=== PATIENT | male | born 1980 | race Two or more races ===

== ENCOUNTER 2024-07-17 17:17 | Inpatient (IN) | payer OTHER ==
[~2024-07-17] VITALS: Ht 165.1 cm; Wt 76.0 kg
[~2024-07-17 17:17] MED LIST: ASPI81CH59 PO; CARV3.1240 PO; FURO40TA4 PO; HYDR-3682 PO; ISOS20TA5 PO; LOSA-534 PO
--- NOTE | 2024-07-17 17:31 | ECG ---
[facility] Test Date: 2024-07-17 Test Time: 17:29:07 Pat Name: LYDIA CARMONA Department: er Room: [address] [place] [address] Gender: M Java Programmer Analyst: gp : 1980 Requested By: RALPH DONALDSON Order Number: [id number] Reading MD: Darell Hodgson Measurements Intervals [place] Rate: 111 P: 66 RI: 163 QRS: 97 QRSD: 108 T: -33 QT: 355 QTc: 483 Interpretive Statements Sinus tachycardia Borderline right axis deviation Nonspecific repol abnrm, inferolateral lds Electronically Signed On 07-18-2024 18:26:50 PST by Darell Hodgson Please click the below link to view image of tracing.
--- NOTE | 2024-07-17 18:29 | ED.PDOC ---
SOB-HPI HPI Comments 44 y.o male with PMHx of CHF, presents to the ED via EMS for a chief complaint of SOB associated with substernal chest pressure radiating to his back, nausea and vomiting that started earlier today. Patient reports similar episodes in the past but has not gotten any treatment for it as it goes away on its own. Patient rates pain a 8/10, states it is constant and has no modifying factors. Patient denies any fever, chills, abdominal pain. Chief Complaint: Shortness of Breath Time Seen by MD: 18:18 Primary Care Provider: SHAISTA Demarco notes: Nurses Notes, Boat Mechanic Notes, Medications, Allergies Information Source: Patient Mode of Arrival: EMS Severity: Moderate Timing: Hours Duration: Since onset Context: At Rest PE Risk Factors: None History of: CHF Modifying Factors: Nothing Associated Signs and Symptoms: Chest Pain Quality: Pressure Radiation: Back Location: Substernal Past Medical History PAST MEDICAL HISTORY: CHF Surgical History: Denies all surgeries Family History Family History: Family hx of Cancer Social History Smoker: Non-Smoker Alcohol: Denies ETOH Use Drugs: Denies Drug Use Lives In: Home Constitutional: denies: chills, diaphoresis, fatigue, fever, malaise, sweats, weakness, others EENTM: denies: blurred vision, double vision, ear bleeding, ear discharge, ear drainage, ear pain, ear ringing, eye pain, eye redness, hearing loss, mouth pain, mouth swelling, nasal discharge, nose bleeding, nose congestion, nose pain, photophobia, tearing, throat pain, throat swelling, voice changes, others Respiratory: reports: SOB at rest, shortness of breath, SOB with excertion; denies: cough, hemoptysis, orthopnea, stridor, wheezing, others Cardiovascular: reports: chest pain; denies: dizzy spells, diaphoresis, Dyspnea on exertion, edema, irregular heart beat, left arm pain, lightheadedness, palpitations, PND, syncope, others Gastrointestinal: reports: nausea, vomiting; denies: abdomen distended, abdominal pain, blood streaked bowels, constipated, diarrhea, dysphagia, difficulty swallowing, hematemesis, melena, poor appetite, poor fluid intake, rectal bleeding, rectal pain, others Genitourinary: denies: burning, dysuria, flank pain, frequency, hematuria, incontinence, penile discharge, penile sore, pain, testicle pain, testicle swelling, urgency, others Neurological: denies: dizziness, fainting, headache, left sided numbness, left sided weakness, numbness, paresthesia, pre-existing deficit, right sided numbness, right sided weakness, seizure, speech problems, tingling, tremors, weakness, others Musculoskeletal: reports: back pain; denies: gout, joint pain, joint swelling, muscle pain, muscle stiffness, neck pain, others Integumetry: denies: bruises, change in color, change in hair/nails, dryness, laceration, lesions, lumps, rash, wounds, others Allergic/Immunocompromised: denies: Difficulty Healing, Frequent Infections, Hives, Itching, others Hematologic/Lymphatic: denies: anemia, blood clots, easy bleeding, easy bruising, swollen glands, others Endocrine: denies: excessive hunger, excessive sweating, excessive thirst, excessive urination, flushing, intolerance to cold, intolerance to heat, unexplained weight gain, unexplained weight loss, others Psychiatric: denies: anxiety, bipolar disorder, depression, hopeless, panic disorder, schizophrenia, sleepless, suicidal, others All Other Systems: Reviewed and Negative Physical Exam General Appearance: Moderate Distress HEENT: Normal ENT Inspection, Pharynx Normal, TMs Normal Neck: Full Range of Motion, Non-Tender, Normal, Normal Inspection Respiratory: Chest Non-Tender, Decreased Breath Sounds, No Accessory Muscle Use, Rales, Respiratory Distress Cardiovascular: No Edema, No JVD, No Murmur, No Gallop, Normal Peripheral Pulses, Regular Rate/Rhythm Breast Exam: Deferred Gastrointestinal: No Organomegaly, Non Tender, No Pulsatile Mass, Normal Bowel Sounds, Soft Genitalia: Deferred Pelvic: Deferred Rectal: Deferred Extremities: No calf tenderness, Normal capillary refill, No pedal edema Musculoskeletal : Apperance: Normal Neurologic: Alert, 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 Was a procedure done?: No Differential Dx Differential Diagnosis: Bronchitis, CHF, Panic Attack, Pneumonia, Pulmonary Embolism, Respiratory Distress, URI X-Ray, Labs, Meds, VS Vital Signs Date Time Temp Pulse Resp B/P (MAP) Pulse Ox O2 Delivery O2 Flow Rate FiO2 07/17/24 19:06 111 07/17/24 17:29 111 07/17/24 17:23 98.0 96 18 154/78 (103) 99 Lab Test 07/17/24 20:27 07/17/24 19:12 Range/Units Troponin I High Sensitivity 70 *H 76 *H </=54 ng/L White Blood Count 6.4 4.4-10.8 10^3/uL Red Blood Count 4.61 4.5-5.90 10^6/uL Hemoglobin 12.3 L 13.5-17.5 g/dL Hematocrit 38.4 L 41.0-53.0 % Mean Corpuscular Volume 83.2 80.0-100.0 fL Mean Corpuscular Hemoglobin 26.7 L 28.0-32.0 pg Mean Corpuscular Hemoglobin Concent 32.1 32.0-36.0 g/dL Red Cell Distribution Width 18.1 H 11.8-14.3 % Platelet Count 355 140-450 10^3/uL Mean Platelet Volume 7.9 6.9-10.8 fL Neutrophils (%) (Auto) 63.4 37.0-80.0 % Lymphocytes (%) (Auto) 18.5 10.0-50.0 % Monocytes (%) (Auto) 16.4 H 0.0-12.0 % Eosinophils (%) (Auto) 0.9 0.0-7.0 % Basophils (%) (Auto) 0.8 0.0-2.0 % Neutrophils # (Auto) 4.1 1.6-8.6 10 ^3/uL Lymphocytes # (Auto) 1.2 0.4-5.4 10 ^3/uL Monocytes # (Auto) 1.1 0-1.3 10 ^3/uL Eosinophils # (Auto) 0.1 0-0.8 10 ^3/uL Basophils # (Auto) 0 0-0.2 10 ^3/uL Nucleated Red Blood Cells 0.3 % Sodium Level 130 L 136-145 mmol/L Potassium Level 4.7 3.5-5.1 mmol/L Chloride Level 98 98-107 mmol/L Carbon Dioxide Level 19 L 20-31 mmol/L Anion Gap 13 5-15 Blood Urea Nitrogen 57 H 9-23 mg/dL Creatinine 2.02 H 0.700-1.30 mg/dL Glomerular Filtration Rate Calc 41 >90 mL/min BUN/Creatinine Ratio 28.2 H 10.0-20.0 Serum Glucose 122 H 74-106 mg/dL Calcium Level 9.2 8.7-10.4 mg/dL B-Type Natriuretic Peptide > 5000.00 0-100 pg/mL The chest x-ray shows: IMPRESSION: 1. Right lower lobe opacity may reflect atelectasis or mild pneumonia. 2. Small right pleural effusion. 3. Cardiomegaly The BNP is greater than 5000 The CBC is within normal limits. The chemistry panel shows a BUN of 57 and a creatinine of 2.02 The CO2 level is 19 and they anion gap is within normal range The troponin level is elevated x2 The patient was being admitted to the hospitalist at this time. A cardiology consult will be obtained. The patient was given Lasix 40 mg IV push We discussed the findings with the patient and he is in agreement with the management Images Reviewed?: Images reviewed and evaluated by me Time of 1ST Reevaluation: 18:26 Reevaluation 1ST: Unchanged Patient Education/Counseling: Diagnosis, Treatment, Prognosis Family Education/Counseling: No Family Present Departure 1 Departure Time of Disposition: 21:21 Impression: Primary Impression: Acute on chronic diastolic heart failure Additional Impressions: Elevated brain natriuretic peptide (BNP) level Elevated troponin Disposition: ADMITTED INPATIENT Admit to: [facility] Condition: Fair Critical Care Note Critical Care Time?: Yes (45 min-critical care time only) Stability Stability form required: Yes Unstable for transfer: Telemetry monitoring (Telemetry monitoring required), ED Physician Assesment (Clinical assesment) Heart Score Heart Score: Heart Score Response (Comments) Value History Moderate Suspicious 1 EKG Repolarization Disturb 1 Age <45 0 Risk Factors >3 or Hx ASHD 2 Troponin 1-2 x's Normal limit 1 Total 5 I personally scribed for RALPH DONALDSON MD ([email or web address]) on 07/17/24 at 18:29. Electronically submitted by Inga Hernandez ([employer]). I personally scribed for RALPH DONALDSON MD ([email or web address]) on 07/17/24 at 19:06. Electronically submitted by Inga Hernandez ([facility]). RALPH DONALDSON MD Jul 17, 2024 18:29
--- NOTE | 2024-07-17 19:03 | DVH ---
CHEST RADIOGRAPH Indication: sob Technique: Frontal and lateral view of the chest was obtained Comparison: None FINDINGS: Lines and Tubes: None Lungs: Right lower lobe opacity may reflect atelectasis or mild pneumonia. Pleura: Small right pleural effusion. No pneumothorax. Cardiomediastinal contours: Cardiomegaly. Bones: Unremarkable IMPRESSION: 1. Right lower lobe opacity may reflect atelectasis or mild pneumonia. 2. Small right pleural effusion. 3. Cardiomegaly
[2024-07-17 19:42] LABS: Basophils # (auto) 0 10 ^3/uL (0-0.2); Basophils % (auto) 0.8 % (0.0-2.0); Eosinophils # (auto) 0.1 10 ^3/uL (0-0.8); Eosinophils % (auto) 0.9 % (0.0-7.0); Hematocrit 38.4 % (41.0-53.0); Hemoglobin 12.3 g/dL (13.5-17.5); Lymphocytes # (auto) 1.2 10 ^3/uL (0.4-5.4); Lymphocytes % (auto) 18.5 % (10.0-50.0); Mean Corpuscular Hemoglobin 26.7 pg (28.0-32.0); Mean Corpuscular Hgb Conc. 32.1 g/dL (32.0-36.0); Mean Corpuscular Volume 83.2 fL (80.0-100.0); Monocytes # (auto) 1.1 10 ^3/uL (0-1.3); Monocytes % (auto) 16.4 % (0.0-12.0); Neutrophils # (auto) 4.1 10 ^3/uL (1.6-8.6); Neutrophils % (auto) 63.4 % (37.0-80.0); Nucleated Red Blood Cells % 0.3 %; Platelet Count (auto) 355 10^3/uL (140-450); Red Blood Cells 4.61 10^6/uL (4.5-5.90); Red Cell Distribution Width 18.1 % (11.8-14.3); White Blood Cell 6.4 10^3/uL (4.4-10.8)
[2024-07-17 20:08] LABS: Chloride 98 mmol/L (98-107); Potassium 4.7 mmol/L (3.5-5.1)
[2024-07-17 20:09] LABS: Anion Gap 13 (5-15); Calcium 9.2 mg/dL (8.7-10.4)
[2024-07-17 20:14] LABS: BUN/Creatinine Ratio 28.2 (10.0-20.0)
[2024-07-17 20:25] LABS: Blood Urea Nitrogen 57 mg/dL (9-23); Carbon Dioxide 19 mmol/L (20-31); Glucose 122 mg/dL (74-106); Sodium 130 mmol/L (136-145)
[2024-07-17] MEDS ORDERED: NITROGLYCERIN 0.4 MG SL TAB SL PRN (22:15)
[2024-07-17] MEDS ORDERED: MORPHINE SULFATE INJ 2 MG/ml SYRG IV PRN (22:15)
--- NOTE | 2024-07-17 22:29 | DVHHPRES ---
History of Present Illness Resident Creating Document: ROSE MARY BOB History of Present Illness The patient is a 44 year-old male with a history of heart failure who presents with worsening bilateral lower extremity swelling, shortness of breath, and cough. The symptoms have progressively worsened over the past few days. The patient reports NYHA Class III-IV symptoms, including significant limitations in physical activity and discomfort with minimal exertion. The patient denies any recent changes in medication or diet. There is a chronic history of methamphetamine abuse and cigarette smoking. As per patient he follows Dr. Pierce in outpatient setting and currently taking aspirin, atorvastatin, Lasix, Coreg, Entresto. As per patient he was told to stop losartan and started Entresto. Patient denied any other symptoms including chest pain, dizziness, motor weakness, sensory deficits, abdominal pain, dysuria, fever, chills, sputum production, any other symptoms. PMH: Patient was able to provide only history of CHF, on eliquis No known indication ?AFIB PE DVT Social history: Chronic meth user, last time smoked two months ago. Chronic cigarette smoker, last smoked one week ago. Medication: Aspirin, Coreg, Entresto Allergy: None Review of Systems Review of Systems Patient complaining of worsening bilateral lower extremity swelling. Constitutional: No: Fever, Chills, Sweats, Weakness, Malaise, Other Eyes: No: Pain, Vision change, Conjunctivae inflammation, Eyelid inflammation, Other, Redness ENT: No: Ear pain, Ear discharge, Nose pain, Nose discharge, Nose congestion, Mouth pain, Mouth swelling, Throat pain, Throat swelling, Other Respiratory: No: Cough, Dry, Shortness of breath, SOB with excertion, Wheezing, Hemoptysis, Pleuritic Pain, Sputum, Wheezing, Other Cardiovascular: No: Chest Pain, Palpitations, Orthopnea, Paroxysmal Noc. Dyspnea, Edema, Lt Headedness, Other Gastrointestinal: No: Nausea, Vomiting, Abdominal Pain, Diarrhea, Constipation, Melena, Hematochezia, Other Genitourinary: No Dysuria, No Frequency, No Incontinence, No Hematuria, No Retention, No Other Musculoskeletal: leg pain; No: other, neck pain, shoulder pain, arm pain, back pain, hand pain, foot pain Skin: No: Rash, Lesions, Jaundice, Bruising, Other Neurological: No: Weakness, Numbness, Incoordination, Change in speech, Confusion, Seizures, Other Allergies: Coded Allergies: NO KNOWN ALLERGIES (Unverified , 07/17/24) Medications Current Medications Medications Dose Ordered Sig/Jacob Route Start Time Stop Time Status Last Admin Dose Admin Nitroglycerin 0.4 mg Q5MINP PRN SL 07/17/24 22:15 UNV Morphine Sulfate 2 mg Q30M PRN IV 07/17/24 22:15 UNV Furosemide 100 mg/ Sodium Chloride 110 ml @ 6.6 mls/hr [id number] IV 07/17/24 22:15 UNV Metolazone 5 mg DAILY PO 07/18/24 10:00 UNV Carvedilol 3.125 mg Q12HR PO 07/18/24 10:00 UNV Ceftriaxone Sodium 50 ml @ 100 mls/hr DAILY@09 IV 07/18/24 09:00 UNV Azithromycin 250 ml @ 125 mls/hr DAILY IV 07/18/24 10:00 UNV Aspirin 81 mg DAILY PO 07/18/24 10:00 UNV Atorvastatin Calcium 40 mg HS PO 07/18/24 22:00 UNV Exam Vital Signs Vital Signs Date Time Temp Pulse Resp B/P (MAP) Pulse Ox O2 Delivery O2 Flow Rate FiO2 07/17/24 19:06 111 07/17/24 17:23 98.0 18 154/78 (103) 99 Exam General Appearance: Cooperative. Well developed. Well nourished. NAD Head Exam: Normal inspection Neck Exam: Normal inspection. Non-tender. Normal alignment Pulmonary/Respiratory: Chest non-tender. Clear bilateral breath sounds Cardiovascular/Chest: Regular rate and rhythm. No murmurs. No JVD. Peripheral Pulses: 2+ Radial (R). 2+ Radial (L). 2+ Pedal (R). 2+ Pedal (L) Abdominal Exam: Normal bowel sounds. Soft. Nontender. No hepatospenomegaly. No masses Ankle Exam: Negative ankle edema Lower extremities: 4+ bilateral lower extremity pitting edema Neuro/Mental Status: A&O x4. Coherent Thoughts/Psych: Normal thought pattern. Appropriate mood and affect. Good judgement and insight Appearance: In no acute distress Skin Exam: Normal inspection. Normal color. Warm. Dry Labs/Xrays Labs Test 07/17/24 20:27 07/17/24 19:12 Range/Units Troponin I High Sensitivity 70 *H </=54 ng/L White Blood Count 6.4 4.4-10.8 10^3/uL Red Blood Count 4.61 4.5-5.90 10^6/uL Hemoglobin 12.3 L 13.5-17.5 g/dL Hematocrit 38.4 L 41.0-53.0 % Mean Corpuscular Volume 83.2 80.0-100.0 fL Mean Corpuscular Hemoglobin 26.7 L 28.0-32.0 pg Mean Corpuscular Hemoglobin Concent 32.1 32.0-36.0 g/dL Red Cell Distribution Width 18.1 H 11.8-14.3 % Platelet Count 355 140-450 10^3/uL Mean Platelet Volume 7.9 6.9-10.8 fL Neutrophils (%) (Auto) 63.4 37.0-80.0 % Lymphocytes (%) (Auto) 18.5 10.0-50.0 % Monocytes (%) (Auto) 16.4 H 0.0-12.0 % Eosinophils (%) (Auto) 0.9 0.0-7.0 % Basophils (%) (Auto) 0.8 0.0-2.0 % Neutrophils # (Auto) 4.1 1.6-8.6 10 ^3/uL Lymphocytes # (Auto) 1.2 0.4-5.4 10 ^3/uL Monocytes # (Auto) 1.1 0-1.3 10 ^3/uL Eosinophils # (Auto) 0.1 0-0.8 10 ^3/uL Basophils # (Auto) 0 0-0.2 10 ^3/uL Nucleated Red Blood Cells 0.3 % Sodium Level 130 L 136-145 mmol/L Potassium Level 4.7 3.5-5.1 mmol/L Chloride Level 98 98-107 mmol/L Carbon Dioxide Level 19 L 20-31 mmol/L Anion Gap 13 5-15 Blood Urea Nitrogen 57 H 9-23 mg/dL Creatinine 2.02 H 0.700-1.30 mg/dL Glomerular Filtration Rate Calc 41 >90 mL/min BUN/Creatinine Ratio 28.2 H 10.0-20.0 Serum Glucose 122 H 74-106 mg/dL Calcium Level 9.2 8.7-10.4 mg/dL B-Type Natriuretic Peptide > 5000.00 0-100 pg/mL Assessment/Plan Assessment/Plan Acute on chronic heart failure, systolic versus diastolic 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 NSTEMI type 2 likely due to CHF and pneumonia Possible pneumonia, Gram-positive versus Gram-negative. Sepsis likely due to pneumonia. 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 Elevated D-dimer, rule out PE. Ruled out lower extremity DVT Chronic history of methamphetamine abuse. Chronic smoker of cigarettes Plan/recommendation Initiate Lasix drip at 6 milligram/hour, metolazone 5 mg p.o. daily, Continue afterload reduction with Coreg 3.125 mg p.o. b.i.d., hold Entresto and spironolactone given possible acute kidney injury IV antibiotic with ceftriaxone and azithromycin Pending respiratory culture, blood culture, echocardiogram Secondary prevention with aspirin 81 mg p.o. daily, atorvastatin 40 mg p.o. da chanel. Continue monitor volume status and urine output Monitor electrolytes including potassium and magnesium given patient is on Lasix drip Urine electrolytes including urine sodium, urine creatinine, urine protein/creatinine given patient has underlying cardiorenal syndrome V/Q scan for possible PE given elevated D-dimer, ruled out lower extremity DVT PUD prophylaxis with Protonix DVT prophylaxis Lovenox Goals of care, discussed greater than 22 minutes. Full code status. Plan discussed with Dr. Prince. Plan discussed with: Patient, Other (RN) My Orders Orders - ROSE MARY BOB RESIDENT Procedure Category Date Status Time Admit ADMIT 07/17/24 Transmitted 22:15 Nitroglycerin PHA 07/17/24 Logged Sublingual (Ntrostat 22:15 Morphine Sulfate PHA 07/17/24 Logged Injection 22:15 Oxygen By Nasal RT 07/17/24 Transmitted Cannula 22:15 Stat Ekg For Chest ALONZO 07/17/24 In Process Pain 22:15 Notify Md Of Changes ALONZO 07/17/24 In Process From Base 22:15 Assistant Controller For ALONZO 07/17/24 In Process 24 Hours 22:15 Emergency Dysrhythmia ALONZO 07/17/24 In Process Protocol 22:15 Rhythm Strips Once ALONZO 07/17/24 In Process Every Shift 22:15 Sodium Chl 0.9% PHA 07/17/24 Logged (So... W/Furosemide 22:15 Metolazone (Zaroxolyn) PHA 07/17/24 Logged 22:15 Metolazone (Zaroxolyn) PHA 07/18/24 Logged 10:00 Carvedilol Tablet PHA 07/17/24 Logged (Coreg Tablet) 22:15 Carvedilol Tablet PHA 07/18/24 Logged (Coreg Tablet) 10:00 Urine Dip ED NURSING 07/17/24 Transmitted Drug Screen LAB 07/17/24 Logged 22:15 Ceftriaxone 1gm/50ml PHA 07/18/24 Logged D5w (Rocephin) 09:00 Ceftriaxone 1gm/50ml PHA 07/17/24 Logged D5w (Rocephin) 22:15 Azithromycin 500mg/ PHA 07/18/24 Logged 250ml (Zithromax 50 10:00 Azithromycin 500mg/ PHA 07/17/24 Logged 250ml (Zithromax 50 22:15 Bilat Lower Dvt US 07/17/24 Logged 22:15 Echo 2d Mode Cardiac US 07/17/24 Logged DOP 22:15 * Cardiology Consult CONS 07/17/24 Transmitted 22:15 Respiratory Culture DENIA 07/17/24 Logged W/ Gs 22:15 Rapid Influenza A&B LAB 07/17/24 Logged 22:23 Aspirin Tablet PHA 07/17/24 Logged 22:30 Aspirin Tablet PHA 07/18/24 Logged 10:00 Atorvastatin (Lipitor) PHA 07/17/24 Logged 22:30 Atorvastatin (Lipitor) PHA 07/18/24 Logged 22:00 Date of Service: Jul 17, 2024 Billing Provider: BRUNILDA PRINCE MD Common Visit Codes: [id number] INP/OBS CARE (HIGH) ROSE MARY BOB RESIDENT Jul 17, 2024 22:29 BRUNILDA PRINCE MD Jul 18, 2024 18:54
--- NOTE | 2024-07-17 23:12 | DVH ---
Bilateral lower extremity venous duplex Clinical History: DVT Comparison: None Technique: Duplex Doppler evaluation of the deep venous systems of both lower extremities from the common femora l veins to the popliteal veins including color Doppler and spectral/pulsed waveform analysis was perf ormed. Findings: RIGHT SIDE: The common femoral vein demonstrates appropriate compressibility and waveform variability. There is compressibility/patency of the great saphenous vein at the proximal thigh. The femoral vein demonstrates appropriate compressibility and waveform variability. The deep femoral vein demonstrates appropriate compressibility and waveform variability. The popliteal vein demonstrates appropriate compressibility and waveform variability. There is normal compressibility at the tibioperoneal trunk. LEFT SIDE: The common femoral vein demonstrates appropriate compressibility and waveform variability. There is compressibility/patency of the great saphenous vein at the proximal thigh. The femoral vein demonstrates appropriate compressibility and waveform variability. The deep femoral vein demonstrates appropriate compressibility and waveform variability. The popliteal vein demonstrates appropriate compressibility and waveform variability. There is normal compressibility at the tibioperoneal trunk. Impression: No right or left femoropopliteal venous thrombosis.
[2024-07-17 23:53] LABS: Triglycerides 92 mg/dL (< 150)
[2024-07-17 23:54] LABS: LDL Cholesterol 70 mg/dL (< 100)
[2024-07-17 23:55] LABS: Cholesterol 95 mg/dL (< 200)
[2024-07-18] LABS: HDL Cholesterol 16 mg/dL (40-59)
[2024-07-18] MEDS: FUROSEMIDE INJECTION 100 MG in SODIUM CHL 0.9% 100 ML IV SCH (06:15)
[2024-07-18] MEDS: CARVEDILOL 3.125 MG TAB PO ONE (06:16)
[2024-07-18] MEDS: AZITHROMYCIN 500MG/ 250ML 250 ML IV ONE (06:16)
[2024-07-18] MEDS: cefTRIAXone 1GM/50ML D5W 50 ML IV ONE (06:23)
[2024-07-18] MEDS: ATORVASTATIN 20 MG TAB PO ONE (06:23)
[2024-07-18] MEDS: metOLazone 5 MG TAB PO ONE (06:23)
[2024-07-18] MEDS: ASPirin 81 mg TAB PO ONE (06:23)
[2024-07-18] MEDS: FUROSEMIDE 40 MG/4 ML VIAL IV ONE (06:24)
[2024-07-18 06:29] VITALS: PULSE 96; RESP 18; O2SAT 99
[2024-07-18] MEDS ORDERED: POTA-180 PO (09:23)
[2024-07-18] MEDS ORDERED: APIX5TAB PO (09:23)
[2024-07-18 09:48] LABS: Basophils # (auto) 0.1 10 ^3/uL (0-0.2); Basophils % (auto) 0.9 % (0.0-2.0); Eosinophils # (auto) 0.1 10 ^3/uL (0-0.8); Eosinophils % (auto) 0.9 % (0.0-7.0); Hematocrit 40.5 % (41.0-53.0); Hemoglobin 13.2 g/dL (13.5-17.5); Lymphocytes # (auto) 1.3 10 ^3/uL (0.4-5.4); Lymphocytes % (auto) 19.6 % (10.0-50.0); Mean Corpuscular Hemoglobin 27.1 pg (28.0-32.0); Mean Corpuscular Hgb Conc. 32.5 g/dL (32.0-36.0); Mean Corpuscular Volume 83.4 fL (80.0-100.0); Monocytes # (auto) 0.8 10 ^3/uL (0-1.3); Monocytes % (auto) 12.7 % (0.0-12.0); Neutrophils # (auto) 4.4 10 ^3/uL (1.6-8.6); Neutrophils % (auto) 65.9 % (37.0-80.0); Nucleated Red Blood Cells % 0.4 %; Platelet Count (auto) 348 10^3/uL (140-450); Red Blood Cells 4.86 10^6/uL (4.5-5.90); Red Cell Distribution Width 17.8 % (11.8-14.3); White Blood Cell 6.7 10^3/uL (4.4-10.8)
[2024-07-18 10:13] LABS: Anion Gap 12 (5-15); Carbon Dioxide 22 mmol/L (20-31)
[2024-07-18 10:19] LABS: BUN/Creatinine Ratio 34.7 (10.0-20.0); Magnesium 2.3 mg/dL (1.6-2.6)
[2024-07-18 10:25] LABS: Blood Urea Nitrogen 66 mg/dL (9-23); Chloride 97 mmol/L (98-107); Glucose 137 mg/dL (74-106); Sodium 131 mmol/L (136-145)
--- NOTE | 2024-07-18 10:32 | DVH ---
ULTRASOUND OF SCROTUM AND CONTENTS. INDICATION: PAIN AND SWELLING COMPARISON: None TECHNIQUE: Multiple real-time grayscale sonographic and color and duplex Doppler images of the scrotu m and its contents were obtained. FINDINGS: The right testicle measures 3.1 x 1.8 x 2.6 cm. The left testicle measures 3.5 x 1.7 x 2.4 cm. Both testicles demonstrate homogeneous echotexture without evidence of focal lesions. The right epididymal head measures 0.7 cm. The left epididymal head measures 0.3 cm. Slightly asymmet shadi increased echogenicity of the right epididymis. Subsequent color and duplex Doppler interrogation of the testes demonstrated symmetric normal vascula r flow to both testicles. No focal areas of hyperemia were seen. Bilateral hydroceles are present. IMPRESSION: 1. Grossly normal sonographic appearance of the bilateral testicles. 2. Bilateral hydroceles. 3. Increased echogenicity of the right epididymis, nonspecific. HS:Y
[2024-07-18] MEDS: MORPHINE SULFATE INJ 2 MG/ml SYRG IM ONE (10:39)
[2024-07-18] MEDS: PANTOPRAZOLE 40 MG/10 ML VIAL INJ IV SCH (10:56)
[2024-07-18] MEDS: CARVEDILOL 3.125 MG TAB PO SCH (10:57)
[2024-07-18] MEDS: metOLazone 5 MG TAB PO SCH (10:57)
[2024-07-18] MEDS: APIXABAN 5 MG TAB PO SCH (10:57)
[2024-07-18] MEDS: ASPirin 81 mg TAB PO SCH (10:58)
[2024-07-18] MEDS: FUROSEMIDE 100 MG/10ML VIAL IV ONE ×2 (14:45→17:00)
[2024-07-18 17:14] LABS: COVID19 ANTIGEN SOFIA FIA NEGATIVE (NEGATIVE); Rapid Influenza A Negative (Negative); Rapid Influenza B Negative (Negative)
--- NOTE | 2024-07-18 17:16 | DVHPNRES ---
Progress Note Date Seen: Jul 18, 2024 Resident Creating Document: DAIN MILIAN RESIDENT Medical Necessity Reason Pt with a Central, PICC or Fol: No The following are medically ne: Dove Catheter Subjective Review of Systems 44-year-old male patient with history of heart failure, hypertension, drug abuse, methamphetamine abuse, nicotine dependency,?Atrial fibrillation, PE(on Eliquis) who presented to the emergency department with a chief complaint of worsening bilateral lower extremity edema, associated with shortness of breaths on minimal physical activity and cough. He reports the symptoms have been progressively worsening over the past few days , orthopnea, paroxysmal nocturnal dyspnea. Patient was evaluated at bedside, he reported severe pain in the groin area, on evaluation there was swelling in the groin and penis, recent BNP > 5000 for which the patient was started on Lasix 80 mg IV b.i.d.. Resume home medications on this patient. Cardiac consult is pending Echocardiogram is pending Patient reports: No new complaints Changes from previous H/P or p: No Changes Objective vital signs Vital Sign Date Time Temp Pulse Resp B/P (MAP) Pulse Ox O2 Delivery O2 Flow Rate FiO2 07/18/24 14:45 120/79 07/18/24 14:10 97.5 99 22 100 97.5 07/18/24 06:29 Room Air* 0 21 medications Current Medications Medications Dose Ordered Sig/Jacob Route Start Time Stop Time Status Last Admin Dose Admin Nitroglycerin 0.4 mg Q5MINP PRN SL 07/17/24 22:15 Morphine Sulfate 2 mg Q30M PRN IV 07/17/24 22:15 Metolazone 5 mg DAILY PO 07/18/24 10:00 07/18/24 10:57 5 MG Carvedilol 3.125 mg Q12HR PO 07/18/24 10:00 Hold 07/18/24 10:57 3.125 MG Ceftriaxone Sodium 50 ml @ 100 mls/hr DAILY@09 IV 07/19/24 09:00 Azithromycin 250 ml @ 125 mls/hr DAILY IV 07/19/24 10:00 Aspirin 81 mg DAILY PO 07/18/24 10:00 07/18/24 10:58 81 MG Atorvastatin Calcium 40 mg HS PO 07/18/24 22:00 Pantoprazole Sodium 40 mg DAILY IV 07/18/24 10:00 07/18/24 10:56 40 MG Apixaban 5 mg BID PO 07/18/24 10:00 07/18/24 10:57 5 MG Furosemide 80 mg BIDD IV 07/18/24 18:00 Furosemide 80 mg BIDD IV 07/18/24 18:00 UNV Examination Examination General Appearance: Alert, Oriented X3, Cooperative, moderate/severe acute distress Respiratory: Clear to auscultation, Normal air movement Cardiovascular: Regular rate, Normal S1, Normal S2 Abdominal: Normal bowel sounds Extremities: No cyanosis, No edema, Normal pulses, No tenderness/swelling Skin: No rashes, No breakdown Neuro: Normal gait, Normal speech, Strength at 5/5 X4 ext, Normal tone, Sensation intact, Cranial nerves 3-12 NL, Reflexes 2+ Psych/Mental Status: Mental status NL, Mood NL laboratory and microbiology Laboratory Tests 07/18/24 09:28 Test 07/18/24 09:28 Range/Units Serum Glucose 137 H 74-106 mg/dL Problem List/Assessment/Plan Problem List/Assessment/Plan #Acute hypoxic respiratory failure likely due to acute on chronic heart failure systolic/diastolic on exacerbation -BNP more than 5000 -Echocardiogram is pending -Currently on diuresis with Lasix 80 mg b.i.d. 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 #NSTEMI type 2 likely due to CHF exacerbation and community-acquired pneumonia #Sepsis likely due to Gram-positive/Gram-negative community-acquired pneumonia -treat underlying condition -continue IV antibiotics -cultures are pending #Hyponatremia likely hypervolemic hyponatremia -treat underlying condition #Pulmonary embolism, ruled out #Nicotine dependency -smoking cessation counseling was provided to the patient. #PUD prophylaxis #DVT prophylaxis Discussed with Dr. Steele Goals of care discussed with the patient for 29 minutes Code status: Full code Plan discussed with: Patient My Orders My Orders Orders - DAIN MILIAN RESIDENT Procedure Category Date Status Time Strict I&O ED NURSING 07/18/24 Transmitted Drug Screen LAB 07/18/24 Logged 09:25 Insert/Manage Urinary ALONZO 07/18/24 In Process Catheter 09:25 Testicular Ultrasound US 07/18/24 Resulted 09:30 Furosemide Injection PHA 07/18/24 In Process (Lasix Injection) 18:00 Furosemide Injection PHA 07/18/24 Logged (Lasix Injection) 17:00 Furosemide Injection PHA 07/18/24 Logged (Lasix Injection) 18:00 Communication Order ORDERS 07/18/24 Transmitted 16:47 Date of Service: Jul 18, 2024 Billing Provider: TATIANA STEELE MD Common Visit Codes: 76255-[id number] INP/OBS CARE(HIGH) Secondary Visit Codes: 30527-[id number] CARE PLAN 30 MINUTES DAIN MILIAN RESIDENT Jul 18, 2024 17:16 TATIANA STEELE MD Jul 18, 2024 20:49
[2024-07-18 17:25] VITALS: BP 117/73; PULSE 100; RESP 24; TEMP 97.7; O2SAT 97
[2024-07-18] MEDS ORDERED: FUROSEMIDE 100 MG/10ML VIAL IV SCH (18:00)
[2024-07-18] MEDS ORDERED: ATORVASTATIN 20 MG TAB PO SCH (22:00)
--- NOTE | 2024-07-18 22:22 | DVHDSRES ---
Discharge Summary Date of Admission Resident Creating Document: DAIN MILIAN RESIDENT Jul 17, 2024 at 22:15 Date of Discharge: Jul 18, 2024 Admitting Diagnosis Acute hypoxic respiratory failure due to CHF ecacerbation Labs/Diagnostic Data: Laboratory Results Test 07/18/24 16:39 07/18/24 09:28 07/17/24 23:11 07/17/24 19:12 Influenza Type A Antigen Negative (Negative) Influenza Type B Antigen Negative (Negative) SARS-CoV-2 Antigen (Rapid) Negative (NEGATIVE) White Blood Count 6.7 10^3/uL (4.4-10.8) Red Blood Count 4.86 10^6/uL (4.5-5.90) Hemoglobin 13.2 g/dL (13.5-17.5) Hematocrit 40.5 % (41.0-53.0) Mean Corpuscular Volume 83.4 fL (80.0-100.0) Mean Corpuscular Hemoglobin 27.1 pg (28.0-32.0) Mean Corpuscular Hemoglobin Concent 32.5 g/dL (32.0-36.0) Red Cell Distribution Width 17.8 % (11.8-14.3) Platelet Count 348 10^3/uL (140-450) Mean Platelet Volume 7.7 fL (6.9-10.8) Neutrophils (%) (Auto) 65.9 % (37.0-80.0) Lymphocytes (%) (Auto) 19.6 % (10.0-50.0) Monocytes (%) (Auto) 12.7 % (0.0-12.0) Eosinophils (%) (Auto) 0.9 % (0.0-7.0) Basophils (%) (Auto) 0.9 % (0.0-2.0) Neutrophils # (Auto) 4.4 10 ^3/uL (1.6-8.6) Lymphocytes # (Auto) 1.3 10 ^3/uL (0.4-5.4) Monocytes # (Auto) 0.8 10 ^3/uL (0-1.3) Eosinophils # (Auto) 0.1 10 ^3/uL (0-0.8) Basophils # (Auto) 0.1 10 ^3/uL (0-0.2) Nucleated Red Blood Cells 0.4 % Sodium Level 131 mmol/L (136-145) Potassium Level 4.0 mmol/L (3.5-5.1) Chloride Level 97 mmol/L (98-107) Carbon Dioxide Level 22 mmol/L (20-31) Anion Gap 12 (5-15) Blood Urea Nitrogen 66 mg/dL (9-23) Creatinine 1.90 mg/dL (0.700-1.30) Glomerular Filtration Rate Calc 44 mL/min (>90) BUN/Creatinine Ratio 34.7 (10.0-20.0) Serum Glucose 137 mg/dL (74-106) Calcium Level 9.0 mg/dL (8.7-10.4) Magnesium Level 2.3 mg/dL (1.6-2.6) D-Dimer, Quantitative 5.21 mg/L FEU (0.0-0.49) Hemoglobin A1c 6.8 % A1C (<5.7) Troponin I High Sensitivity 76 ng/L (</=54) Triglycerides Level 92 mg/dL (< 150) Cholesterol Level 95 mg/dL (< 200) LDL Cholesterol 70 mg/dL (< 100) HDL Cholesterol 16 mg/dL (40-59) Thyroid Stimulating Hormone (TSH) 3.15 uIU/mL (0.55-4.78) B-Type Natriuretic Peptide > 5000.00 pg/mL (0-100) Other Laboratory Tests 07/18/24 09:28 Brief Hx & Hospital Course: The patient is a 63-year-old female with a history of heart failure with reduced ejection fraction (HFrEF), COPD, coronary artery disease, and congenital heart disease status post-surgery at 10 months of age, who presented with worsening shortness of breath over the past week. Her symptoms began after exposure to sick grandchildren with flu-like symptoms, which led to congestion, dry cough, fever, sore throat, and worsening dyspnea. The patient, who normally uses oxygen at 2 L/min and CPAP at night, required daytime oxygen due to worsening symptoms. On admission, she reported left-sided chest wall tenderness that worsened with coughing and pleuritic chest pain. She was started on antibiotics for possible respiratory infection, and her cardiac and pulmonary conditions were closely monitored. Cardiology evaluated her and noted low blood pressure, leading to the temporary holding of Entresto and Lasix, with plans to resume both at lower doses as tolerated. Pacemaker interrogation was unremarkable, and she continued Eliquis for atrial fibrillation. Pulmonology was consulted, and she was maintained on 3 L/min oxygen via nasal cannula, with plans to taper oxygen as tolerated. Imaging and labs were consistent with chronic cardiopulmonary disease without new acute findings. By discharge, the patient was clinically stable, reporting improvement in symptoms and able to ambulate with minimal dyspnea. She was discharged on guideline-directed medical therapy for HFrEF, including Entresto, Aldactone, and metoprolol, along with Eliquis for atrial fibrillation. She was advised to continue oxygen at 3 L/min and taper as tolerated, use BiPAP as needed, and follow a low-sodium diet. She will follow up with cardiology for heart failure management, pulmonology for COPD, and her primary care physician to monitor her recovery. The patient was discharged in stable condition with clear instructions to return if she develops worsening shortness of breath, chest pain, or fluid retention. Discharge Summary Hospital Course: The patient is a 44-year-old male with a significant history of heart failure, hypertension, methamphetamine abuse, nicotine dependence, atrial fibrillation on Eliquis, and pulmonary embolism, who presented with progressive lower extremity edema, shortness of breath on minimal exertion, and orthopnea over the past few days. He also reported nocturnal dyspnea and severe groin pain on admission. Physical examination revealed swelling in the groin and penis. Lab work showed a BNP > 5000, consistent with heart failure exacerbation. The patient was started on IV Lasix 80 mg b.i.d. for diuresis and symptom management, with plans to transition back to his home medications once stabilized. Cardiology was consulted, and an echocardiogram was ordered to evaluate for changes in cardiac function. Despite initial improvement in symptoms, the patient chose to leave the hospital against medical advice (AMA) prior to completing his diagnostic workup, including the pending echocardiogram, and before full optimization of his treatment plan. Condition at Discharge: The patient left the hospital AMA and was counseled extensively on the risks of leaving before completing his treatment and diagnostic evaluation, including potential worsening of heart failure, thromboembolic complications, and progression of symptoms. He verbalized understanding but declined to stay. Written discharge instructions were provided. Case discussed with Operations or Procedures [address] [address] Ph: [phone] DIAGNOSTIC IMAGING Diagnostic Imaging Report : [id number] Signed PATIENT: LYDIA CARMONA ACCT: [id number] UNIT: [id number] : 1980 LOC: ER ROOM / BED: / AGE / SEX: 44 / M ADM STATUS: REG ER SERVICE 1836 ORDERING PHYSICIAN: RALPH DONALDSON MD PROCEDURE(s): CXR2 - CHEST TWO VIEWS ROUTINE REASON: sob ORDER NUMBER(s): [id number], ACCESSION NUMBER(s): [id number] CHEST RADIOGRAPH Indication: sob Technique: Frontal and lateral view of the chest was obtained Comparison: None FINDINGS: Lines and Tubes: None Lungs: Right lower lobe opacity may reflect atelectasis or mild pneumonia. Pleura: Small right pleural effusion. No pneumothorax. Cardiomediastinal contours: Cardiomegaly. Bones: Unremarkable IMPRESSION: 1. Right lower lobe opacity may reflect atelectasis or mild pneumonia. 2. Small right pleural effusion. 3. Cardiomegaly ATED BY: MORGAN HOLLAND MD DICTATED DATE/TIME: 07/17/241899 SIGNED BY: MORGAN HOLLAND MD SIGNED DATE/TIME: 07/17/241899 CC: [place] [id number] Ph: [phone] DIAGNOSTIC IMAGING Diagnostic Imaging Report : [id number] Signed PATIENT: LYDIA CARMONA ACCT: [id number] UNIT: [id number] : 1980 LOC: ER ROOM / BED: / AGE / SEX: 44 / M ADM STATUS: REG ER SERVICE 2215 ORDERING PHYSICIAN: ROSE MARY BOB PROCEDURE(s): BLDVT - BiLat Lower DVT REASON: DVT ORDER NUMBER(s): [id number], ACCESSION NUMBER(s): [id number] Bilateral lower extremity venous duplex Clinical History: DVT Comparison: None Technique: Duplex Doppler evaluation of the deep venous systems of both lower extremities from the common femoral veins to the popliteal veins including color Doppler and spectral/pulsed waveform analysis was performed. Findings: RIGHT SIDE: The common femoral vein demonstrates appropriate compressibility and waveform variability. There is compressibility/patency of the great saphenous vein at the proximal thigh. The femoral vein demonstrates appropriate compressibility and waveform variability. The deep femoral vein demonstrates appropriate compressibility and waveform variability. The popliteal vein demonstrates appropriate compressibility and waveform variability. There is normal compressibility at the tibioperoneal trunk. LEFT SIDE: The common femoral vein demonstrates appropriate compressibility and waveform variability. There is compressibility/patency of the great saphenous vein at the proximal thigh. The femoral vein demonstrates appropriate compressibility and waveform variability. The deep femoral vein demonstrates appropriate compressibility and waveform variability. The popliteal vein demonstrates appropriate compressibility and waveform variability. There is normal compressibility at the tibioperoneal trunk. Impression: No right or left femoropopliteal venous thrombosis. ATED BY: GINGER LI DO DICTATED DATE/TIME: 07/17/242309 SIGNED BY: GINGER LI DO SIGNED DATE/TIME: 07/17/242309 CC: [place] [id number] Ph: [phone] DIAGNOSTIC IMAGING Diagnostic Imaging Report : [id number] Signed PATIENT: LYDIA CARMONA ACCT: [id number] UNIT: [id number] : 1980 LOC: [facility] ROOM / BED: [address] [place] [address] AGE / SEX: 44 / M ADM STATUS: ADM IN SERVICE 9 ORDERING PHYSICIAN: DAIN MILIAN RESIDENT PROCEDURE(s): TESUS - TESTICULAR ULTRASOUND REASON: PAIN AND SWELLING ORDER NUMBER(s): [id number], ACCESSION NUMBER(s): [id number] ULTRASOUND OF SCROTUM AND CONTENTS. INDICATION: PAIN AND SWELLING COMPARISON: None TECHNIQUE: Multiple real-time grayscale sonographic and color and duplex Doppler images of the scrotum and its contents were obtained. FINDINGS: The right testicle measures 3.1 x 1.8 x 2.6 cm. The left testicle measures 3.5 x 1.7 x 2.4 cm. Both testicles demonstrate homogeneous echotexture without evidence of focal lesions. The right epididymal head measures 0.7 cm. The left epididymal head measures 0.3 cm. Slightly asymmetric increased echogenicity of the right epididymis. Subsequent color and duplex Doppler interrogation of the testes demonstrated symmetric normal vascular flow to both testicles. No focal areas of hyperemia were seen. Bilateral hydroceles are present. IMPRESSION: 1. Grossly normal sonographic appearance of the bilateral testicles. 2. Bilateral hydroceles. 3. Increased echogenicity of the right epididymis, nonspecific. 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 Patient was counseled about treatment plan, medications, possible side effects, patientverbalized understanding. All questions were answered to the best of my ability. This discharge took greater then 30 minutes in planning, reviewing documentation, counseling the patient, and discussing with other team members." ASSESSMENT ASSESSMENT Assessment DAIN MILIAN RESIDENT Jul 18, 2024 22:22
--- NOTE | 2024-07-18 23:05 | DVHINCON2 ---
Date of service: Jul 18, 2024 Referring Physician Kathy Reason for Consultation CHF History of Present Illness This is a 44 year old male who was brought in by EMS with c/o SOB associated with substernal chest pressure radiating to his back, nausea and vomiting x 1 day. Patient reports similar episodes in the past but has not gotten any treatment for it as it goes away on its own. Patient rates pain a 8/10, states it is constant and has no modifying factors. EKG shows tachycardia at 111. Chest x-ray shows right lower lobe opacity may reflect atelectasis or mild pneumonia, small right pleural effusion and cardiomegaly. BNP is greater than 5000. CBC is within normal limits. Chemistry panel shows a BUN of 57 and a creatinine of 2.02, CO2 level is 19, anion gap is within normal range. Troponin level is elevated x2. Patient was admitted to the hospital. I am asked to consult on this patient. Allergies: Coded Allergies: NO KNOWN ALLERGIES (Unverified , 07/17/24) Home Meds Reported Medications Potassium Chloride (Potassium Chloride ER) 20 Meq Tab, 1 TAB PO DAILY for 90 Days, #90 07/18/24 Aspirin (Aspirin Low Dose) 81 Mg Chw, 1 TAB PO DAILY for 90 Days, #90 07/18/24 Carvedilol (Carvedilol) 3.125 Mg Tab, 1 TAB PO BID for 60 Days, #120 07/18/24 Losartan Potassium (Losartan Potassium) 50 Mg Tab, 1 TAB PO DAILY for 60 Days, #60 07/18/24 Isosorbide Dinitrate (Isosorbide Dinitrate) 20 Mg Tab, 1 TAB PO BID for 60 Days, #120 07/18/24 Hydroxyzine Hcl (Hydroxyzine Hcl) 25 Mg Tab, 1 TAB PO DAILY for 30 Days, #30 07/18/24 Apixaban Base (ELIQUIS) 5 Mg Tab, 1 TAB PO BID for 30 Days, #60 07/18/24 Furosemide (Furosemide) 40 Mg Tab, 1 TAB PO DAILY for 60 Days, #60 07/18/24 Current Medications Current Medications Medications (Trade) Dose Ordered Sig/Jacob Route PRN Reason Start Time Stop Time Status Last Admin Metolazone (Zaroxolyn) 5 mg DAILY PO 07/18/24 10:00 07/18/24 10:57 Carvedilol (Coreg Tablet) 3.125 mg Q12HR PO 07/18/24 10:00 Hold 07/18/24 10:57 Ceftriaxone Sodium 50 ml @ 100 mls/hr DAILY@09 IV 07/19/24 09:00 Azithromycin 250 ml @ 125 mls/hr DAILY IV 07/19/24 10:00 Aspirin 81 mg DAILY PO 07/18/24 10:00 07/18/24 10:58 Atorvastatin Calcium (Lipitor) 40 mg HS PO 07/18/24 22:00 Pantoprazole Sodium (Protonix) 40 mg DAILY IV 07/18/24 10:00 07/18/24 10:56 Apixaban (Eliquis) 5 mg BID PO 07/18/24 10:00 07/18/24 10:57 Furosemide (Lasix Injection) 80 mg BIDD IV 07/18/24 18:00 07/18/24 17:29 DC Furosemide (Lasix Injection) 80 mg BIDD IV 07/19/24 06:00 Review of Systems Constitutional: denies: chills, diaphoresis, fatigue, fever, malaise, sweats, weakness, others EENTM: denies: blurred vision, double vision, ear bleeding, ear discharge, ear drainage, ear pain, ear ringing, eye pain, eye redness, hearing loss, mouth pain, mouth swelling, nasal discharge, nose bleeding, nose congestion, nose pain, photophobia, tearing, throat pain, throat swelling, voice changes, others Respiratory: reports: SOB at rest, shortness of breath, SOB with excertion; denies: cough, hemoptysis, orthopnea, stridor, wheezing, others Cardiovascular: reports: chest pain; denies: dizzy spells, diaphoresis, Dyspnea on exertion, edema, irregular heart beat, left arm pain, lightheadedness, palpitations, PND, syncope, others Gastrointestinal: reports: nausea, vomiting; denies: abdomen distended, abdominal pain, blood streaked bowels, constipated, diarrhea, dysphagia, difficulty swallowing, hematemesis, melena, poor appetite, poor fluid intake, rectal bleeding, rectal pain, others Genitourinary: denies: burning, dysuria, flank pain, frequency, hematuria, incontinence, penile discharge, penile sore, pain, testicle pain, testicle swelling, urgency, others Neurological: denies: dizziness, fainting, headache, left sided numbness, left sided weakness, numbness, paresthesia, pre-existing deficit, right sided numbness, right sided weakness, seizure, speech problems, tingling, tremors, weakness, others Musculoskeletal: reports: back pain; denies: gout, joint pain, joint swelling, muscle pain, muscle stiffness, neck pain, others Integumetry: denies: bruises, change in color, change in hair/nails, dryness, laceration, lesions, lumps, rash, wounds, others Allergic/Immunocompromised: denies: Difficulty Healing, Frequent Infections, Hives, Itching, others Hematologic/Lymphatic: denies: anemia, blood clots, easy bleeding, easy bruising, swollen glands, others Endocrine: denies: excessive hunger, excessive sweating, excessive thirst, excessive urination, flushing, intolerance to cold, intolerance to heat, unexplained weight gain, unexplained weight loss, others Psychiatric: denies: anxiety, bipolar disorder, depression, hopeless, panic disorder, schizophrenia, sleepless, suicidal, others All Other Systems: Reviewed and Negative Vital Signs Vital Signs Date Time Temp Pulse Resp B/P (MAP) Pulse Ox O2 Delivery O2 Flow Rate FiO2 07/18/24 17:25 97.7 100 24 117/73 (88) 97 97.7 07/18/24 06:29 Room Air* 0 21 Physical Exam GENERAL: Awake, alert, oriented. LUNGS: Clear. CARDIOVASCULAR: Heart sounds are good. ABDOMEN: Soft. Labs/Diagnostic Data Labs Test 07/18/24 16:39 07/18/24 09:28 07/17/24 23:11 07/17/24 19:12 Range/Units Influenza Type A Antigen Negative Negative Influenza Type B Antigen Negative Negative SARS-CoV-2 Antigen (Rapid) Negative NEGATIVE White Blood Count 6.7 4.4-10.8 10^3/uL Red Blood Count 4.86 4.5-5.90 10^6/uL Hemoglobin 13.2 L 13.5-17.5 g/dL Hematocrit 40.5 L 41.0-53.0 % Mean Corpuscular Volume 83.4 80.0-100.0 fL Mean Corpuscular Hemoglobin 27.1 L 28.0-32.0 pg Mean Corpuscular Hemoglobin Concent 32.5 32.0-36.0 g/dL Red Cell Distribution Width 17.8 H 11.8-14.3 % Platelet Count 348 140-450 10^3/uL Mean Platelet Volume 7.7 6.9-10.8 fL Neutrophils (%) (Auto) 65.9 37.0-80.0 % Lymphocytes (%) (Auto) 19.6 10.0-50.0 % Monocytes (%) (Auto) 12.7 H 0.0-12.0 % Eosinophils (%) (Auto) 0.9 0.0-7.0 % Basophils (%) (Auto) 0.9 0.0-2.0 % Neutrophils # (Auto) 4.4 1.6-8.6 10 ^3/uL Lymphocytes # (Auto) 1.3 0.4-5.4 10 ^3/uL Monocytes # (Auto) 0.8 0-1.3 10 ^3/uL Eosinophils # (Auto) 0.1 0-0.8 10 ^3/uL Basophils # (Auto) 0.1 0-0.2 10 ^3/uL Nucleated Red Blood Cells 0.4 % Sodium Level 131 L 136-145 mmol/L Potassium Level 4.0 3.5-5.1 mmol/L Chloride Level 97 L 98-107 mmol/L Carbon Dioxide Level 22 20-31 mmol/L Anion Gap 12 5-15 Blood Urea Nitrogen 66 H 9-23 mg/dL Creatinine 1.90 H 0.700-1.30 mg/dL Glomerular Filtration Rate Calc 44 >90 mL/min BUN/Creatinine Ratio 34.7 H 10.0-20.0 Serum Glucose 137 H 74-106 mg/dL Calcium Level 9.0 8.7-10.4 mg/dL Magnesium Level 2.3 1.6-2.6 mg/dL D-Dimer, Quantitative 5.21 H 0.0-0.49 mg/L FEU Hemoglobin A1c 6.8 H <5.7 % A1C Troponin I High Sensitivity 76 *H </=54 ng/L Triglycerides Level 92 < 150 mg/dL Cholesterol Level 95 < 200 mg/dL LDL Cholesterol 70 < 100 mg/dL HDL Cholesterol 16 L 40-59 mg/dL Thyroid Stimulating Hormone (TSH) 3.15 0.55-4.78 uIU/mL B-Type Natriuretic Peptide > 5000.00 0-100 pg/mL Assessment Acute hypoxic respiratory failure. Acute on chronic heart failure systolic/diastolic on exacerbation. Acute kidney injury. History of methamphetamine use. 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 NSTEMI type 2 likely due to CHF exacerbation and community-acquired pneumonia. Sepsis likely due to Gram-positive/Gram-negative community-acquired pneumonia. Hyponatremia. Nicotine dependency. Plan/Recommendation I agree with your ongoing assessment and care of plan. Echocardiogram. IV antibiotics as ordered. Diuretics with Lasix. Lipitor. Eliquis. GI prophylactics. Morphine for pain management. Additional plan as per the hospital course. A total of 45 minutes was spent reviewing the patient record, examining the patient, making a diagnostic and therapeutic plan, discussing this plan with medical personnel, following up on diagnostic studies and following the patient for clinical stability excluding any and all procedures. At least 50% of this time was spent in direct, [id number] contact. Plan discussed with: Patient PHILIP SANTILLAN MD Jul 18, 2024 23:05
[2024-07-19] MEDS ORDERED: FUROSEMIDE 100 MG/10ML VIAL IV SCH (06:00)
[2024-07-19] MEDS ORDERED: cefTRIAXone 1GM/50ML D5W 50 ML IV SCH (09:00)
[2024-07-19] MEDS ORDERED: AZITHROMYCIN 500MG/ 250ML 250 ML IV SCH (10:00)
== END 2024-07-18 19:14 | disposition left against medical advice (07) | DRG 720 ==
LOC: EDBD 17:17 → ER 17:23 → TELE 22:15
PROVIDERS: ADMIT Internal Medicine Geriatric Medicine; ATTEND Internal Medicine Geriatric Medicine
DX: A41.50 Gram-negative sepsis, unspecified (principal); N17.0 Acute kidney failure with tubular necrosis; I50.43 Acute on chronic combined systolic (congestive) and diastolic (congestive) heart failure; I21.A1 Myocardial infarction type 2; J15.69 Pneumonia due to other Gram-negative bacteria; I42.7 Cardiomyopathy due to drug and external agent; I13.0 Hypertensive heart and chronic kidney disease with heart failure and stage 1 through stage 4 chronic kidney disease, or unspecified chronic kidney disease; E87.1 Hypo-osmolality and hyponatremia; J15.9 Unspecified bacterial pneumonia; Z20.822 Contact with and (suspected) exposure to COVID-19; E78.5 Hyperlipidemia, unspecified; F17.200 Nicotine dependence, unspecified, uncomplicated; N18.9 Chronic kidney disease, unspecified; I48.91 Unspecified atrial fibrillation; Z53.29 Procedure and treatment not carried out because of patient's decision for other reasons
CPT/HCPCS: 36415; 71046; 76870; 80048; 80061; 83036; 83735; 83880; 84443; 84484; 85025; 85379; 87426; 87804; 93005; 93970; 99291; G0378; J2470

== ENCOUNTER 2024-07-18 22:02 | Inpatient (IN) | payer OTHER ==
[~2024-07-18] VITALS: Ht 172.7 cm; Wt 152.4 kg
[~2024-07-18 22:02] MED LIST changes: +APIX5TAB PO; +POTA-180 PO
--- NOTE | 2024-07-18 22:59 | DVH ---
CHEST RADIOGRAPH Indication: sob/cp Technique: Single frontal view of the chest was obtained Comparison: None Findings/ IMPRESSION: Mild cardiomegaly with small right-sided pleural effusion.
[2024-07-18 23:07] LABS: Basophils # (auto) 0 10 ^3/uL (0-0.2); Basophils % (auto) 0.7 % (0.0-2.0); Eosinophils # (auto) 0 10 ^3/uL (0-0.8); Eosinophils % (auto) 0.8 % (0.0-7.0); Hematocrit 40.4 % (41.0-53.0); Hemoglobin 12.6 g/dL (13.5-17.5); Lymphocytes % (auto) 17.3 % (10.0-50.0); Mean Corpuscular Hemoglobin 26.2 pg (28.0-32.0); Mean Corpuscular Hgb Conc. 31.2 g/dL (32.0-36.0); Mean Corpuscular Volume 83.9 fL (80.0-100.0); Monocytes # (auto) 0.6 10 ^3/uL (0-1.3); Monocytes % (auto) 10.4 % (0.0-12.0); Neutrophils # (auto) 4.2 10 ^3/uL (1.6-8.6); Neutrophils % (auto) 70.8 % (37.0-80.0); Nucleated Red Blood Cells % 0.6 %; Platelet Count (auto) 334 10^3/uL (140-450); Red Blood Cells 4.81 10^6/uL (4.5-5.90)
[2024-07-18 23:25] LABS: Anion Gap 10 (5-15); BUN/Creatinine Ratio 33.3 (10.0-20.0); Calcium 8.7 mg/dL (8.7-10.4); Carbon Dioxide 22 mmol/L (20-31); Chloride 98 mmol/L (98-107); Magnesium 2.3 mg/dL (1.6-2.6); Potassium 4.4 mmol/L (3.5-5.1)
[2024-07-18 23:26] LABS: Total Protein 6.5 g/dL (5.7-8.2)
[2024-07-18 23:28] LABS: Alanine Aminotransferase 304 U/L (7-40); Alkaline Phosphatase 135 U/L (46-116); Aspartate Aminotransferase 474 U/L (13-40); Bilirubin, Total 2.2 mg/dL (0.2-1.0); Blood Urea Nitrogen 65 mg/dL (9-23); Glucose 150 mg/dL (74-106); Sodium 130 mmol/L (136-145)
[2024-07-18 23:33] LABS: Lactic Acid w/Reflex 4.4 mmol/L (0.4-2.0)
[2024-07-18] MEDS: NITROGLYCERIN 0.4 MG SL TAB SL ONE (23:45)
[2024-07-18] MEDS: FUROSEMIDE 100 MG/10ML VIAL IV ONE (23:45)
[2024-07-18] MEDS: ASPirin 325 MG TAB PO ONE (23:45)
--- NOTE | 2024-07-18 23:56 | ED.PDOC ---
SOB-HPI HPI Comments HPI: Poor Historian. 44-year-old male presents to the emergency department for evaluation of shortness of breath chest pain and respiratory complaints. Patient was here yesterday and had elevated troponin and he left against medical advice. Patient returned again today. Patient is homeless and has history of methamphetamine u se. Patient has history of CHF and on Lasix. He states compliance with the medications but he says his bags of medicine is missing. He does not know if he is on blood thinners or not. Past Medcial History: Past Surgical History: REVIEW OF SYSTEMS: CONSTITUTIONAL: Denies acute: fever, diaphoresis, chills, generalized weakness. HEAD: Denies acute: headache, photophobia Eyes: Denies acute: Double vision, vision loss, eye pain, eye discharge. EARS: Denies acute: tinnitus, hearing loss, ear discharge, ear pain, THROAT: Denies acute: sore throat, swelling, difficulty swallowing , pain with swallowing, change in voice. NECK: Denies acute: neck pain, neck swelling, stiff neck. HEART: Denies acute : palpitations, LUNGS: Denies acute: wheezing, cough, hemoptysis ABDOMEN: Denies acute: abdominal pain, Nausea, Vomiting, diarrhea, melena , hematemesis, hematochezia SKIN: Denies acute: rash, redness, lesions, itchiness. EXTREMITIES: Denies acute: calf pain, numbness, tingling, weakness, denies pain in extremity. Denies acute: Low back pain. Neuro: Denies acute: focal neurological deficit, motor or sensory focal neurological deficit, tremors, seizure like activity, confusion, dizziness, change in mental status, loss of bowel or bladder function, cauda equina like symptoms. : Denies acute: dysuria, hematuria, flank pain, increase in urinary frequency. PSYCH: Denies acute: hallucination, suicidal ideation, homicidal ideation. PHYSICAL EXAM: General: no acute distress, awake and alert. Head: normocephalic, atraumatic. Neck: supple, trachea is midline, no swelling. Throat: Normal phonation. Eyes:, no erythema, no purulent discharge, no proptosis, no icterus. Heart: regular rate, regular rhythm, no significant murmur appreciated. Lungs: Mild respiratory distress, Able to speak in full sentences. No wheezing, no rhonchi, no crackles. No stridors Clear to auscultation bilaterally. Abdomen: non tender to palpation, non distended, soft, no guarding, no rebound, + bowel sounds. Neuro: Awake, Alert, oriented to name, self, situation, follows commands GCS=15. Speech is normal. Skin: no petechia, no purpura, no cyanosis, non-pale, not jaundice. Lower extremities: --4/4 - Pitting edema no deformity, no focal swelling, no calf TTP. Makes eye contact. moves all four extremities. Face: no apparent facial droop. Ambulating in the ED independently. Chief Complaint: Flu like Time Seen by MD: 22:35 Primary Care Provider: SHAISTA Reviewed notes: Nurses Notes, Allergies Information Source: Patient Mode of Arrival: EMS Past Medical History PAST MEDICAL HISTORY: CHF Surgical History: Denies all surgeries Family History Family History: Family hx of Cancer Social History Smoker: Non-Smoker Alcohol: Denies ETOH Use Drugs: Denies Drug Use Lives In: Home X-Ray, Labs, Meds, VS Vital Signs Date Time Temp Pulse Resp B/P (MAP) Pulse Ox O2 Delivery O2 Flow Rate FiO2 07/18/24 22:09 97.3 100 18 122/94 (103) 98 Lab Test 07/19/24 00:40 07/18/24 23:43 07/18/24 22:53 Range/Units Lactic Acid Level 3.4 *H 4.4 *H 0.4-2.0 mmol/L Troponin I High Sensitivity 71 *H 74 *H </=54 ng/L Plasma/Serum Blood Alcohol < 3.0 <10 mg/dL White Blood Count 6.0 4.4-10.8 10^3/uL Red Blood Count 4.81 4.5-5.90 10^6/uL Hemoglobin 12.6 L 13.5-17.5 g/dL Hematocrit 40.4 L 41.0-53.0 % Mean Corpuscular Volume 83.9 80.0-100.0 fL Mean Corpuscular Hemoglobin 26.2 L 28.0-32.0 pg Mean Corpuscular Hemoglobin Concent 31.2 L 32.0-36.0 g/dL Red Cell Distribution Width 18.0 H 11.8-14.3 % Platelet Count 334 140-450 10^3/uL Mean Platelet Volume 7.9 6.9-10.8 fL Neutrophils (%) (Auto) 70.8 37.0-80.0 % Lymphocytes (%) (Auto) 17.3 10.0-50.0 % Monocytes (%) (Auto) 10.4 0.0-12.0 % Eosinophils (%) (Auto) 0.8 0.0-7.0 % Basophils (%) (Auto) 0.7 0.0-2.0 % Neutrophils # (Auto) 4.2 1.6-8.6 10 ^3/uL Lymphocytes # (Auto) 1.0 0.4-5.4 10 ^3/uL Monocytes # (Auto) 0.6 0-1.3 10 ^3/uL Eosinophils # (Auto) 0 0-0.8 10 ^3/uL Basophils # (Auto) 0 0-0.2 10 ^3/uL Nucleated Red Blood Cells 0.6 % Sodium Level 130 L 136-145 mmol/L Potassium Level 4.4 3.5-5.1 mmol/L Chloride Level 98 98-107 mmol/L Carbon Dioxide Level 22 20-31 mmol/L Anion Gap 10 5-15 Blood Urea Nitrogen 65 H 9-23 mg/dL Creatinine 1.95 H 0.700-1.30 mg/dL Glomerular Filtration Rate Calc 43 >90 mL/min BUN/Creatinine Ratio 33.3 H 10.0-20.0 Serum Glucose 150 H 74-106 mg/dL Calcium Level 8.7 8.7-10.4 mg/dL Magnesium Level 2.3 1.6-2.6 mg/dL Total Bilirubin 2.2 H 0.2-1.0 mg/dL Aspartate Amino Transferase (AST) 474 H 13-40 U/L Alanine Aminotransferase (ALT) 304 H 7-40 U/L Alkaline Phosphatase 135 H 46-116 U/L B-Type Natriuretic Peptide > 5000.00 0-100 pg/mL Total Protein 6.5 5.7-8.2 g/dL Albumin 3.0 L 3.2-4.8 g/dL [address] [address] Ph: [phone] DIAGNOSTIC IMAGING Diagnostic Imaging Report : [id number] Signed PATIENT: LUDY HAYNES ACCT: [id number] UNIT: [id number] : 05/20/2008 LOC: ER ROOM / BED: / AGE / SEX: 16 / F ADM STATUS: REG ER SERVICE 1702 ORDERING PHYSICIAN: SHAISTA LEIVA DO PROCEDURE(s): CXRP - CHEST PORTABLE REASON: sob ORDER NUMBER(s): [id number], ACCESSION NUMBER(s): [id number] CHEST RADIOGRAPH Indication: sob Technique: Single frontal view of the chest was obtained Comparison: None FINDINGS: Lines and Tubes: None Lungs: Clear Pleura: No effusion. No pneumothorax. Cardiomediastinal contours: Unremarkable Bones: Unremarkable IMPRESSION: Clear lungs. ATED BY: EUGENIO LI DO DICTATED DATE/TIME: 07/18/242118 SIGNED BY: EUGENIO LI DO SIGNED DATE/TIME: 07/18/242118 CC: Departure 1 Departure Time of Disposition: 00:30 Impression: Primary Impression: Acute on chronic diastolic heart failure Additional Impressions: Elevated troponin Homelessness Elevated lactic acid level History of drug abuse Elevated LFTs Disposition: ADMITTED INPATIENT Admit to: Tele Condition: Guarded Discharged With: Self Critical Care Note Critical Care Time?: Yes (45 min-critical care time only) I personally scribed for SHAISTA LEIVA DO ([email or web address]) on 07/19/24 at 00:11. Electronically submitted by Srinath Marvin ([email or web address]). I personally scribed for SHAISTA LEIVA DO ([email or web address]) on 07/19/24 at 01:52. Electronically submitted by Srinath Marvin ([email or web address]). SHAISTA LEIVA DO Jul 18, 2024 23:56
[2024-07-19] VITALS (9 sets, daily range): BP systolic 92–122; BP diastolic 70–86; PULSE 93–102; RESP 14–20; TEMP 98; O2SAT 95–100
[2024-07-19] MEDS ORDERED: NITROGLYCERIN 0.4 MG SL TAB SL PRN (01:15)
[2024-07-19] MEDS ORDERED: MORPHINE SULFATE INJ 2 MG/ml SYRG IV PRN (01:15)
--- NOTE | 2024-07-19 01:34 | DVHHPRES ---
History of Present Illness Resident Creating Document: ROSE MARY BOB History of Present Illness Patient more recently admitted to the hospital however patient left AMA on 07/18/2024 and come back within few hours to emergency department for continue care. The patient is a 44 year-old male with a history of heart failure who presents with worsening bilateral lower extremity swelling, shortness of breath, and cough. The symptoms have progressively worsened over the past few days. The patient reports NYHA Class III-IV symptoms, including significant limitations in physical activity and discomfort with minimal exertion. The patient denies any recent changes in medication or diet. There is a chronic history of methamphetamine abuse and cigarette smoking. As per patient he follows Dr. Pierce in outpatient setting and currently taking aspirin, atorvastatin, Lasix, Coreg, Entresto. As per patient he was told to stop losartan and started Entresto. Patient denied any other symptoms including chest pain, dizziness, motor weakness, sensory deficits, abdominal pain, dysuria, fever, chills, sputum production, any other symptoms. PMH: Patient was able to provide only history of CHF, on eliquis No known indication ?AFIB PE DVT Social history: Chronic meth user, last time smoked two months ago. Chronic cigarette smoker, last smoked one week ago. Medication: Aspirin, Coreg, Entresto Allergy: None Review of Systems Review of Systems Patient complaining of worsening bilateral lower extremity swelling. Constitutional: No: Fever, Chills, Sweats, Weakness, Malaise, Other Eyes: No: Pain, Vision change, Conjunctivae inflammation, Eyelid inflammation, Other, Redness ENT: No: Ear pain, Ear discharge, Nose pain, Nose discharge, Nose congestion, Mouth pain, Mouth swelling, Throat pain, Throat swelling, Other Respiratory: No: Cough, Dry, Shortness of breath, SOB with excertion, Wheezing, Hemoptysis, Pleuritic Pain, Sputum, Wheezing, Other Cardiovascular: No: Chest Pain, Palpitations, Orthopnea, Paroxysmal Noc. Dyspnea, Edema, Lt Headedness, Other Gastrointestinal: No: Nausea, Vomiting, Abdominal Pain, Diarrhea, Constipation, Melena, Hematochezia, Other Genitourinary: No Dysuria, No Frequency, No Incontinence, No Hematuria, No Retention, No Other Musculoskeletal: leg pain; No: other, neck pain, shoulder pain, arm pain, back pain, hand pain, foot pain Skin: No: Rash, Lesions, Jaundice, Bruising, Other Neurological: No: Weakness, Numbness, Incoordination, Change in speech, Confusion, Seizures, Other Allergies: Coded Allergies: NO KNOWN ALLERGIES (Unverified , 07/17/24) Medications Current Medications Medications Dose Ordered Sig/Jacob Route Start Time Stop Time Status Last Admin Dose Admin Nitroglycerin 0.4 mg Q5MINP PRN SL 07/19/24 01:15 Morphine Sulfate 2 mg Q30M PRN IV 07/19/24 01:15 Furosemide 80 mg BIDD IV 07/19/24 06:00 UNV Aspirin 81 mg DAILY PO 07/19/24 10:00 UNV Atorvastatin Calcium 40 mg HS PO 07/19/24 22:00 UNV Ceftriaxone Sodium 50 ml @ 100 mls/hr DAILY@09 IV 07/19/24 09:00 UNV Azithromycin 250 ml @ 125 mls/hr DAILY IV 07/19/24 10:00 UNV Metolazone 5 mg DAILY PO 07/19/24 10:00 UNV Apixaban 5 mg BID PO 07/19/24 10:00 UNV Exam Vital Signs Vital Signs Date Time Temp Pulse Resp B/P (MAP) Pulse Ox O2 Delivery O2 Flow Rate FiO2 07/18/24 22:09 97.3 100 18 122/94 (103) 98 Exam General Appearance: Cooperative. Well developed. Well nourished. NAD Head Exam: Normal inspection Neck Exam: Normal inspection. Non-tender. Normal alignment Pulmonary/Respiratory: Chest non-tender. Clear bilateral breath sounds Cardiovascular/Chest: Regular rate and rhythm. No murmurs. No JVD. Peripheral Pulses: 2+ Radial (R). 2+ Radial (L). 2+ Pedal (R). 2+ Pedal (L) Abdominal Exam: Normal bowel sounds. Soft. Nontender. No hepatospenomegaly. No masses Ankle Exam: Negative ankle edema Lower extremities: 4+ bilateral lower extremity pitting edema Neuro/Mental Status: A&O x4. Coherent Thoughts/Psych: Normal thought pattern. Appropriate mood and affect. Good judgement and insight Appearance: In no acute distress Skin Exam: Normal inspection. Normal color. Warm. Dry Labs/Xrays Labs Test 07/19/24 00:40 07/18/24 23:43 07/18/24 22:53 Range/Units Troponin I High Sensitivity 71 *H </=54 ng/L Plasma/Serum Blood Alcohol < 3.0 <10 mg/dL White Blood Count 6.0 4.4-10.8 10^3/uL Red Blood Count 4.81 4.5-5.90 10^6/uL Hemoglobin 12.6 L 13.5-17.5 g/dL Hematocrit 40.4 L 41.0-53.0 % Mean Corpuscular Volume 83.9 80.0-100.0 fL Mean Corpuscular Hemoglobin 26.2 L 28.0-32.0 pg Mean Corpuscular Hemoglobin Concent 31.2 L 32.0-36.0 g/dL Red Cell Distribution Width 18.0 H 11.8-14.3 % Platelet Count 334 140-450 10^3/uL Mean Platelet Volume 7.9 6.9-10.8 fL Neutrophils (%) (Auto) 70.8 37.0-80.0 % Lymphocytes (%) (Auto) 17.3 10.0-50.0 % Monocytes (%) (Auto) 10.4 0.0-12.0 % Eosinophils (%) (Auto) 0.8 0.0-7.0 % Basophils (%) (Auto) 0.7 0.0-2.0 % Neutrophils # (Auto) 4.2 1.6-8.6 10 ^3/uL Lymphocytes # (Auto) 1.0 0.4-5.4 10 ^3/uL Monocytes # (Auto) 0.6 0-1.3 10 ^3/uL Eosinophils # (Auto) 0 0-0.8 10 ^3/uL Basophils # (Auto) 0 0-0.2 10 ^3/uL Nucleated Red Blood Cells 0.6 % Sodium Level 130 L 136-145 mmol/L Potassium Level 4.4 3.5-5.1 mmol/L Chloride Level 98 98-107 mmol/L Carbon Dioxide Level 22 20-31 mmol/L Anion Gap 10 5-15 Blood Urea Nitrogen 65 H 9-23 mg/dL Creatinine 1.95 H 0.700-1.30 mg/dL Glomerular Filtration Rate Calc 43 >90 mL/min BUN/Creatinine Ratio 33.3 H 10.0-20.0 Serum Glucose 150 H 74-106 mg/dL Calcium Level 8.7 8.7-10.4 mg/dL Magnesium Level 2.3 1.6-2.6 mg/dL Total Bilirubin 2.2 H 0.2-1.0 mg/dL Aspartate Amino Transferase (AST) 474 H 13-40 U/L Alanine Aminotransferase (ALT) 304 H 7-40 U/L Alkaline Phosphatase 135 H 46-116 U/L B-Type Natriuretic Peptide > 5000.00 0-100 pg/mL Total Protein 6.5 5.7-8.2 g/dL Albumin 3.0 L 3.2-4.8 g/dL Assessment/Plan Assessment/Plan Acute on chronic heart failure, systolic versus diastolic 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 NSTEMI type 2 likely due to CHF and pneumonia Possible pneumonia, Gram-positive versus Gram-negative. Sepsis likely due to pneumonia. 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 Elevated D-dimer, rule out PE. Ruled out lower extremity DVT Chronic history of methamphetamine abuse. Chronic smoker of cigarettes Plan/recommendation IV Lasix 80 mg b.i.d. hold Coreg 3.125 mg p.o. b.i.d., hold Entresto and spironolactone given possible acute kidney injury IV antibiotic with ceftriaxone and azithromycin Pending respiratory culture, blood culture, echocardiogram Secondary prevention with aspirin 81 mg p.o. daily, atorvastatin 40 mg p.o. daily. Continue monitor volume status and urine output Monitor electrolytes including potassium and magnesium given patient is on Lasix drip Urine electrolytes including urine sodium, urine creatinine, urine protein/creatinine given patient has underlying cardiorenal syndrome V/Q scan for possible PE given elevated D-dimer, ruled out lower extremity DVT PUD prophylaxis with [facility] Goals of care, discussed greater than 22 minutes. Full code status. Plan discussed with Dr Prince Plan discussed with: Patient My Orders Orders - ROSE MARY BOB RESIDENT Procedure Category Date Status Time Admit ADMIT 07/19/24 Transmitted 01:10 Nitroglycerin PHA 07/19/24 In Process Sublingual (Ntrostat 01:15 Morphine Sulfate PHA 07/19/24 In Process Injection 01:15 Oxygen By Nasal RT 07/19/24 Transmitted Cannula 01:10 Stat Ekg For Chest ALONZO 07/19/24 In Process Pain 01:10 Notify Of Changes ALONZO 07/19/24 In Process From Base 01:10 Gamma Operator For ALONZO 07/19/24 In Process 24 Hours 01:10 Emergency Dysrhythmia [facility] 07/19/24 In Process Protocol 01:10 Rhythm Strips Once [facility] 07/19/24 In Process Every Shift 01:10 Furosemide Injection [facility] 07/19/24 Logged (Lasix Injection) 06:00 Aspirin Tablet PHA 07/19/24 Logged 10:00 Atorvastatin (Lipitor) PHA 07/19/24 Logged 22:00 Ceftriaxone 1gm/50ml PHA 07/19/24 Logged D5w (Rocephin) 09:00 Azithromycin 500mg/ PHA 07/19/24 Logged 250ml (Zithromax 50 10:00 Metolazone (Zaroxolyn) PHA 07/19/24 Logged 10:00 Apixaban (Eliquis) PHA 07/19/24 Logged 10:00 Echo 2d Mode Cardiac US 07/19/24 Logged DOP 01:14 * Cardiology Consult CONS 07/19/24 Transmitted 01:14 Strict I & O ALONZO 07/19/24 In Process 01:14 Maintain Fluid [facility] 07/19/24 In Process Restrictions 01:14 Cardiac DIET 07/19/24 Transmitted Diet-2gna,Lofat,Lochol Breakfast Urine LAB 07/19/24 Logged Protein/Creatinine Urine Creatinine LAB 07/19/24 Logged 01:14 Urine Sodium LAB 07/19/24 Logged 01:14 Urinalysis LAB 07/19/24 Transmitted 01:23 Drug Screen LAB 07/19/24 Transmitted 01:23 Date of Service: Jul 19, 2024 Billing Provider: BRUNILDA PRINCE MD Common Visit Codes: [id number] INP/OBS CARE (HIGH) ROSE MARY BOB RESIDENT Jul 19, 2024 01:34 BRUNILDA PRINCE MD Jul 19, 2024 17:53
[2024-07-19] MEDS: FUROSEMIDE 100 MG/10ML VIAL IV SCH (06:45)
[2024-07-19] MEDS: PANTOPRAZOLE 40 MG TAB PO SCH (06:46)
[2024-07-19 06:57] LABS: Albumin 3.3 g/dL (3.2-4.8); Anion Gap 11 (5-15); BUN/Creatinine Ratio 36.5 (10.0-20.0); Carbon Dioxide 21 mmol/L (20-31); Potassium 4.1 mmol/L (3.5-5.1)
[2024-07-19 06:58] LABS: Alanine Aminotransferase 356 U/L (7-40); Alkaline Phosphatase 156 U/L (46-116); Aspartate Aminotransferase 556 U/L (13-40); Bilirubin, Total 2.5 mg/dL (0.2-1.0); Blood Urea Nitrogen 70 mg/dL (9-23); Calcium 8.4 mg/dL (8.7-10.4); Chloride 97 mmol/L (98-107); Glucose 122 mg/dL (74-106); Sodium 129 mmol/L (136-145)
[2024-07-19] MEDS: ACETAMINOPHEN 325 MG TAB PO ONE (07:15)
[2024-07-19] MEDS: LORazepam 2MG/ML-1ML VIAL IV ONE ×2 (08:42→14:00)
[2024-07-19] MEDS: cefTRIAXone 1GM/50ML D5W 50 ML IV SCH (09:23)
[2024-07-19] MEDS: AZITHROMYCIN 500MG/ 250ML 250 ML IV SCH (11:00)
[2024-07-19] MEDS: ASPirin 81 mg TAB PO SCH (12:55)
[2024-07-19] MEDS: APIXABAN 5 MG TAB PO SCH (12:55)
[2024-07-19] MEDS: DOCUSATE SOD 100 MG CAP PO ONE (12:56)
[2024-07-19] MEDS: metOLazone 5 MG TAB PO SCH (12:56)
[2024-07-19] MEDS: LORazepam 2MG/ML-1ML VIAL ONE (14:00)
--- NOTE | 2024-07-19 15:21 | DVHINCON2 ---
Date of service: Jul 19, 2024 Referring Physician Kathy Reason for Consultation CHF History of Present Illness This is a 44-year-old male with a PMH of CHF (currently on Lasix) who presents to the emergency department with complaints of shortness of breath with associated chest pain and additional respiratory complaints. Patient was seen here at [facility] yesterday and had elevated troponin and he left against medical advice. Patient is homeless and has history of methamphetamine use. Patient states compliance with the medications he's prescribed but he says his bags of medicine are missing. Patient does not know if he is on blood thinners or not. NA 129, CL 97, BUN 70, AUDIT TECH 1.92, AST 556, ALT 356, TROP 74 > 71 > 70. Chest x-ray shows mild cardiomegaly with small right-sided pleural ef fusion. Patient was admitted to the hospital. I am asked to consult on this patient. Allergies: Coded Allergies: NO KNOWN ALLERGIES (Unverified , 07/17/24) Home Meds Reported Medications Potassium Chloride (Potassium Chloride ER) 20 Meq Tab, 1 TAB PO DAILY for 90 Days, #90 07/18/24 Aspirin (Aspirin Low Dose) 81 Mg Chw, 1 TAB PO DAILY for 90 Days, #90 07/18/24 Carvedilol (Carvedilol) 3.125 Mg Tab, 1 TAB PO BID for 60 Days, #120 07/18/24 Losartan Potassium (Losartan Potassium) 50 Mg Tab, 1 TAB PO DAILY for 60 Days, #60 07/18/24 Isosorbide Dinitrate (Isosorbide Dinitrate) 20 Mg Tab, 1 TAB PO BID for 60 Days, #120 07/18/24 Hydroxyzine Hcl (Hydroxyzine Hcl) 25 Mg Tab, 1 TAB PO DAILY for 30 Days, #30 07/18/24 Apixaban Base (ELIQUIS) 5 Mg Tab, 1 TAB PO BID for 30 Days, #60 07/18/24 Furosemide (Furosemide) 40 Mg Tab, 1 TAB PO DAILY for 60 Days, #60 07/18/24 Current Medications Current Medications Medications (Trade) Dose Ordered Sig/Jacob Route PRN Reason Start Time Stop Time Status Last Admin Nitroglycerin (Ntrostat Sublingual) 0.4 mg Q5MINP PRN SL FOR CHEST PAIN 07/19/24 01:15 Morphine Sulfate 2 mg Q30M PRN IV FOR CHEST PAIN 07/19/24 01:15 Furosemide (Lasix Injection) 80 mg BIDD IV 07/19/24 06:00 07/19/24 06:45 Aspirin 81 mg DAILY PO 07/19/24 10:00 Atorvastatin Calcium (Lipitor) 40 mg HS PO 07/19/24 22:00 Ceftriaxone Sodium 50 ml @ 100 mls/hr DAILY@09 IV 07/19/24 09:00 07/19/24 09:23 Azithromycin 250 ml @ 125 mls/hr DAILY IV 07/19/24 10:00 07/19/24 11:00 Metolazone (Zaroxolyn) 5 mg DAILY PO 07/19/24 10:00 Apixaban (Eliquis) 5 mg BID PO 07/19/24 10:00 Pantoprazole Sodium (Protonix Tablet) 40 mg DAILY@0600 PO 07/19/24 06:00 07/19/24 06:46 Review of Systems CONSTITUTIONAL: Denies acute: fever, diaphoresis, chills, generalized weakness. HEAD: Denies acute: headache, photophobia Eyes: Denies acute: Double vision, vision loss, eye pain, eye discharge. EARS: Denies acute: tinnitus, hearing loss, ear discharge, ear pain, THROAT: Denies acute: sore throat, swelling, difficulty swallowing , pain with swallowing, change in voice. NECK: Denies acute: neck pain, neck swelling, stiff neck. HEART: Denies acute : palpitations, LUNGS: Denies acute: wheezing, cough, hemoptysis ABDOMEN: Denies acute: abdominal pain, Nausea, Vomiting, diarrhea, melena , hem atemesis, hematochezia SKIN: Denies acute: rash, redness, lesions, itchiness. EXTREMITIES: Denies acute: calf pain, numbness, tingling, weakness, denies pain in extremity. Denies acute: Low back pain. Neuro: Denies acute: focal neurological deficit, motor or sensory focal neurological deficit, tremors, seizure like activity, confusion, dizziness, change in mental status, loss of bowel or bladder function, cauda equina like symptoms. : Denies acute: dysuria, hematuria, flank pain, increase in urinary frequency. PSYCH: Denies acute: hallucination, suicidal ideation, homicidal ideation. Vital Signs Vital Signs Date Time Temp Pulse Resp B/P (MAP) Pulse Ox O2 Delivery O2 Flow Rate FiO2 07/19/24 12:00 90 07/19/24 11:30 13 112/78 (89) 94 07/19/24 09:30 97.8 97.8 07/19/24 08:30 Room Air* 0 21 Physical Exam GENERAL: Awake, alert, oriented. LUNGS: Clear. CARDIOVASCULAR: Heart sounds are good. ABDOMEN: Soft. EXT: 4+ BLE pitting edema. Labs/Diagnostic Data Labs Test 07/19/24 06:10 07/19/24 01:32 07/19/24 00:40 07/18/24 23:43 Range/Units Sodium Level 129 L 136-145 mmol/L Potassium Level 4.1 3.5-5.1 mmol/L Chloride Level 97 L 98-107 mmol/L Carbon Dioxide Level 21 20-31 mmol/L Anion Gap 11 5-15 Blood Urea Nitrogen 70 H 9-23 mg/dL Creatinine 1.92 H 0.700-1.30 mg/dL Glomerular Filtration Rate Calc 44 >90 mL/min BUN/Creatinine Ratio 36.5 H 10.0-20.0 Serum Glucose 122 H 74-106 mg/dL Calcium Level 8.4 L 8.7-10.4 mg/dL Total Bilirubin 2.5 H 0.2-1.0 mg/dL Aspartate Amino Transferase (AST) 556 H 13-40 U/L Alanine Aminotransferase (ALT) 356 H 7-40 U/L Alkaline Phosphatase 156 H 46-116 U/L Total Protein 7.0 5.7-8.2 g/dL Albumin 3.3 3.2-4.8 g/dL Troponin I High Sensitivity 70 *H </=54 ng/L Lactic Acid Level 3.4 *H 0.4-2.0 mmol/L Plasma/Serum Blood Alcohol < 3.0 <10 mg/dL Test 07/18/24 22:53 Range/Units White Blood Count 6.0 4.4-10.8 10^3/uL Red Blood Count 4.81 4.5-5.90 10^6/uL Hemoglobin 12.6 L 13.5-17.5 g/dL Hematocrit 40.4 L 41.0-53.0 % Mean Corpuscular Volume 83.9 80.0-100.0 fL Mean Corpuscular Hemoglobin 26.2 L 28.0-32.0 pg Mean Corpuscular Hemoglobin Concent 31.2 L 32.0-36.0 g/dL Red Cell Distribution Width 18.0 H 11.8-14.3 % Platelet Count 334 140-450 10^3/uL Mean Platelet Volume 7.9 6.9-10.8 fL Neutrophils (%) (Auto) 70.8 37.0-80.0 % Lymphocytes (%) (Auto) 17.3 10.0-50.0 % Monocytes (%) (Auto) 10.4 0.0-12.0 % Eosinophils (%) (Auto) 0.8 0.0-7.0 % Basophils (%) (Auto) 0.7 0.0-2.0 % Neutrophils # (Auto) 4.2 1.6-8.6 10 ^3/uL Lymphocytes # (Auto) 1.0 0.4-5.4 10 ^3/uL Monocytes # (Auto) 0.6 0-1.3 10 ^3/uL Eosinophils # (Auto) 0 0-0.8 10 ^3/uL Basophils # (Auto) 0 0-0.2 10 ^3/uL Nucleated Red Blood Cells 0.6 % Magnesium Level 2.3 1.6-2.6 mg/dL B-Type Natriuretic Peptide > 5000.00 0-100 pg/mL Assessment Acute on chronic heart failure, systolic versus diastolic. Cardiomyopathy. NSTEMI type 2 likely due to CHF and pneumonia. Possible pneumonia, Gram-positive versus Gram-negative. Sepsis likely due to pneumonia. ZAHIDA. Hyponatremia. Elevated D-dimer. Chronic history of methamphetamine abuse. Chronic smoker of cigarettes. Plan/Recommendation I agree with your ongoing assessment and care of plan. Echocardiogram. Eliquis. Aspirin, Lipitor. IV antibiotics as ordered. Diuretics with Lasix. Morphine for pain management. Nitro SL. GI prophylactics. Additional plan as per the hospital course. A total of 45 minutes was spent reviewing the patient record, examining the patient, making a diagnostic and therapeutic plan, discussing this plan with medical personnel, following up on diagnostic studies and following the patient for clinical stability excluding any and all procedures. At least 50% of this time was spent in direct, [id number] contact. Plan discussed with: Patient PHILIP SANTILLAN MD Jul 19, 2024 13:39
[2024-07-19 15:29] LABS: Urine Bacteria FEW /hpf (None Seen); Urine Blood 3+ /uL (Negative); Urine Clarity Clear (Clear); Urine Color Colorless (Yellow); Urine Hyaline Cast MOD /lpf (0 - 2); Urine Mucus FEW (None Seen); Urine Protein, UAD 1+ (Negative); Urine Specific Gravity 1.009 (1.001-1.035); Urine Squamous Epithelial Cell None Seen /hpf (<5); Urine Urobilinogen Normal (Negative); Urine WBC 16 /hpf (0 - 3); Urine pH 5.5 (5.0-9.0)
[2024-07-19 15:42] LABS: Protein, Urine 67.4 mg/dL (1-14)
[2024-07-19 15:45] LABS: Amphetamine Screen, Urine Neg (NEGATIVE); Creatinine, Urine 30.75 mg/dL (30.0-125.0); Urine Protein/Creatinine Ratio 2.19
[2024-07-19 15:46] LABS: Cannabinoid Screen, Urine Neg (NEGATIVE)
[2024-07-19 16:03] LABS: Barbiturate Scree,Urine Neg (NEGATIVE); Benzodiazephine Screen, Urine Neg (NEGATIVE); Cocaine Screen, Urine Neg (NEGATIVE); Opiate Scree,Urine Neg (NEGATIVE); Phencyclidine Screen, Urine Neg (NEGATIVE)
--- NOTE | 2024-07-19 16:18 | DVHPNRES ---
Progress Note Date Seen: Jul 19, 2024 Resident Creating Document: DAIN MILIAN RESIDENT Medical Necessity Reason Pt with a Central, PICC or Fol: No The following are medically ne: Dove Catheter Subjective Review of Systems 44-year-old male patient, recently admitted to the hospital however patient left AMA on 07/18/2024 and come back within few hours to emergency department on 07/19/2024, with past medical history of heart failure, methamphetamine abuse, nicotine dependency, who presented to the emergency department with a chief complaint of shortness of breaths on minimal exertion, productive cough, and bilateral lower extremity swelling. Patient was started on Lasix 80 mg b.i.d. IV, carvedilol was held and the patient was given Ativan p.r.n. as he was agitated. Patient follows Dr. Pierce in outpatient, he is currently on following home meds: Aspirin, atorvastatin, Lasix, carvedilol, Entresto. Cardiology was consulted, who recommends to continue current medical management. Echocardiogram is pending. Patient with episode of desaturation, when oxygen saturation decreased until 85 84% from 97-100% while he was sleeping. Review of systems: Constitutional: No: Fever, Chills, Sweats, Weakness, Malaise, Other Eyes: No: Pain, Vision change, Conjunctivae inflammation, Eyelid inflammation, Other, Redness ENT: No: Ear pain, Ear discharge, Nose pain, Nose discharge, Nose congestion, Mouth pain, Mouth swelling, Throat pain, Throat swelling, Other Respiratory: Cough present, Shortness of breath. No Wheezing, Hemoptysis, Pleuritic Pain, Sputum, Wheezing, Other Cardiovascular: No: Chest Pain, Palpitations, Orthopnea, Paroxysmal Noc. Dyspnea, Edema, Lt Headedness, Other Gastrointestinal: No: Nausea, Vomiting, Abdominal Pain, Diarrhea, Constipation, Melena, Hematochezia, Other Musculoskeletal: No: other, neck pain, shoulder pain, arm pain, back pain, hand pain, leg pain, foot pain Neurological:; No: Weakness, Numbness, Incoordination, Change in speech, Confusion, Seizures Patient reports: No new complaints Changes from previous H/P or p: No Changes Objective vital signs Vital Sign Date Time Temp Pulse Resp B/P (MAP) Pulse Ox O2 Delivery O2 Flow Rate FiO2 07/19/24 15:30 100 19 98/69 (79) 95 07/19/24 15:02 0.0 21 07/19/24 09:30 97.8 97.8 07/19/24 08:30 Room Air* medications Current Medications Medications Dose Ordered Sig/Jacob Route Start Time Stop Time Status Last Admin Dose Admin Nitroglycerin 0.4 mg Q5MINP PRN SL 07/19/24 01:15 Morphine Sulfate 2 mg Q30M PRN IV 07/19/24 01:15 Furosemide 80 mg BIDD IV 07/19/24 06:00 07/19/24 06:45 80 MG Aspirin 81 mg DAILY PO 07/19/24 10:00 Atorvastatin Calcium 40 mg HS PO 07/19/24 22:00 Ceftriaxone Sodium 50 ml @ 100 mls/hr DAILY@09 IV 07/19/24 09:00 07/19/24 09:23 100 MLS/HR Azithromycin 250 ml @ 125 mls/hr DAILY IV 07/19/24 10:00 07/19/24 11:00 125 MLS/HR Metolazone 5 mg DAILY PO 07/19/24 10:00 Apixaban 5 mg BID PO 07/19/24 10:00 Pantoprazole Sodium 40 mg DAILY@0600 PO 07/19/24 06:00 07/19/24 06:46 40 MG Lorazepam 1 mg Q8HP PRN IV 07/19/24 16:00 Examination Examination General Appearance: Alert, Oriented X2, non cooperative, moderate acute distress Respiratory: Clear to auscultation, Normal air movement Cardiovascular: Regular rate, Normal S1, Normal S2 Abdominal: Normal bowel sounds Extremities: No cyanosis, No edema, Normal pulses, No tenderness/swelling Skin: No rashes, No breakdown, testicular edema Neuro: Normal gait, Strength at 5/5 X4 ext, Normal tone, Sensation intact, Reflexes 2+ laboratory and microbiology Laboratory Tests 07/19/24 06:10 07/18/24 22:53 Test 07/19/24 06:10 Range/Units Serum Glucose 122 H 74-106 mg/dL Problem List/Assessment/Plan Problem List/Assessment/Plan #Acute hypoxic respiratory failure likely due to acute on chronic heart failure systolic/diastolic on exacerbation -BNP more than 5000 -Echocardiogram is pending -Currently on diuresis with Lasix 80 mg b.i.d. 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 #NSTEMI type 2 likely due to CHF exacerbation and community-acquired pneumonia #Sepsis likely due to Gram-positive/Gram-negative community-acquired pneumonia -treat underlying condition -continue IV antibiotics -cultures are pending -aspirin -Lipitor -Eliquis #Hyponatremia likely hypervolemic hyponatremia -treat underlying condition #Pulmonary embolism, ruled out #Nicotine dependency Smoking cessation counseling Case discussed with Dr. Steele Goals of care discussed with the patient for 19 minutes Code status: Full code Plan discussed with: Patient My Orders My Orders Orders - DAIN MILIAN RESIDENT Procedure Category Date Status Time Lorazepam 2mg/Ml Inj PHA 07/19/24 In Process (Ativan Inj) 16:00 Date of Service: Jul 19, 2024 Billing Provider: TATIANA STEELE MD Common Visit Codes: [id number] INP/OBS CARE(HIGH) Secondary Visit Codes: [id number] CARE PLAN 30 MINUTES DAIN MILIAN RESIDENT Jul 19, 2024 16:18 TATIANA STEELE MD Jul 19, 2024 20:22
[2024-07-19] MEDS: LORazepam 2MG/ML-1ML VIAL IV PRN (17:24)
[2024-07-19 18:46] LABS: Base Excess -0.2 mmol/L (-2.0-3.0)
[2024-07-19] MEDS: ATORVASTATIN 20 MG TAB PO SCH (22:00)
[2024-07-19] MEDS: NALOXONE HCL 0.4 MG/ML VIAL ONE ×2 (22:16→22:29)
[2024-07-19] MEDS: NALOXONE HCL 0.4 MG/ML VIAL IM ONE (22:32)
[2024-07-19] MEDS: SUCCINYLCHOLINE CHLORIDE 20 MG/ML 10ML VIAL IV ONE (22:35)
[2024-07-19] MEDS: ETOMIDATE (2MG/ML) 20ML VIAL IV ONE (22:35)
[2024-07-19] MEDS: FLUMAZENIL 0.1 MG/ML INJ 10ML MDV IV ONE (22:42)
[2024-07-20] VITALS (17 sets, daily range): BP systolic 102–120; BP diastolic 47–88; PULSE 65–109; RESP 17–20; TEMP 97.6–98.1; O2SAT 93–100
[2024-07-20 00:46] LABS: Base Excess 2.9 mmol/L (-2.0-3.0)
[2024-07-20] MEDS: FLUMAZENIL 0.1 MG/ML INJ 10ML MDV IV ONE ×2 (05:37→05:57)
[2024-07-20 07:16] LABS: Eosinophils # (auto) 0.1 10 ^3/uL (0-0.8); Hematocrit 42.2 % (41.0-53.0); Hemoglobin 13.8 g/dL (13.5-17.5); Lymphocytes # (auto) 0.7 10 ^3/uL (0.4-5.4); Monocytes # (auto) 0.7 10 ^3/uL (0-1.3); White Blood Cell 6.8 10^3/uL (4.4-10.8)
[2024-07-20 07:18] LABS: Basophils # (auto) 0 10 ^3/uL (0-0.2); Basophils % (auto) 0.5 % (0.0-2.0); Eosinophils % (auto) 1.5 % (0.0-7.0); Lymphocytes % (auto) 10.3 % (10.0-50.0); Mean Corpuscular Hemoglobin 26.6 pg (28.0-32.0); Mean Corpuscular Hgb Conc. 32.7 g/dL (32.0-36.0); Mean Corpuscular Volume 81.4 fL (80.0-100.0); Monocytes % (auto) 10.6 % (0.0-12.0); Neutrophils # (auto) 5.3 10 ^3/uL (1.6-8.6); Neutrophils % (auto) 77.1 % (37.0-80.0); Nucleated Red Blood Cells % 0.2 %; Platelet Count (auto) 328 10^3/uL (140-450); Red Blood Cells 5.19 10^6/uL (4.5-5.90); Red Cell Distribution Width 17.9 % (11.8-14.3)
[2024-07-20 07:20] LABS: Chloride 99 mmol/L (98-107); INR 1.45 (0.9-1.15); Partial Thromboplastin Time 30.5 SEC (24.5-34.5); Sodium 137 mmol/L (136-145)
[2024-07-20 07:21] LABS: Anion Gap 10 (5-15); Calcium 8.9 mg/dL (8.7-10.4); Carbon Dioxide 28 mmol/L (20-31)
[2024-07-20 07:26] LABS: BUN/Creatinine Ratio 37.4 (10.0-20.0)
[2024-07-20 07:27] LABS: Magnesium 2.2 mg/dL (1.6-2.6)
[2024-07-20 07:30] LABS: Blood Urea Nitrogen 67 mg/dL (9-23); Glucose 71 mg/dL (74-106); Potassium 2.7 mmol/L (3.5-5.1)
[2024-07-20] MEDS: POTASSIUM CHL 20MEQ/100ML 100 ML IV SCH (11:51)
--- NOTE | 2024-07-20 12:36 | DVHPNRES ---
Progress Note Date Seen: Jul 20, 2024 Resident Creating Document: DAIN MILIAN RESIDENT Medical Necessity Reason Pt with a Central, PICC or Fol: No The following are medically ne: Dove Catheter Subjective Review of Systems 44-year-old male patient, recently admitted to the hospital however patient left AMA on 07/18/2024 and come back within few hours to emergency department on 07/19/2024, with past medical history of heart failure, methamphetamine abuse, nicotine dependency, who presented to the emergency department with a chief complaint of shortness of breaths on minimal exertion, productive cough, and bilateral lower extremity swelling. Patient was started on Lasix 80 mg b.i.d. IV, carvedilol was held and the patient was given Ativan p.r.n. as he was agitated. Patient follows Dr. Pierce in outpatient, he is currently on following home meds: Aspirin, atorvastatin, Lasix, carvedilol, Entresto. Cardiology was consulted, who recommends to continue current medical management. Echocardiogram is pending. Patient was examined at bedside, patient was connected to BiPAP machine to provide oxygen supplementation, patient is is is arousable but becomes agitated on times, recent potassium levels were low, 2.7 for which the patient was given 60 mEq IV potassium rider. Lower extremities still swollen, edema 2+. Current creatinine levels 1.7. Patient is currently on Lasix 40 mg b.i.d. Patient continue telemetry. I&Os: Output 4050 mL in the past 24 hours. In the afternoon, patient was evaluated at bedside, patient was more alert and oriented, x3. Patient was started on nasal cannula 3 L oxygenating until 98 % Patient was given 50 mEq potassium stat Patient was continue on Lasix 40 mg IV b.i.d., spironolactone 25 mg was given to the patient . Patient will continue with IV potassium 60 mEq, remeasured potassium levels after 2nd potassium bag is completed. Strict I&Os. Fluid restriction, except for medications. Urine output 4700ml Patient reports: No new complaints Changes from previous H/P or p: No Changes Objective vital signs Vital Sign Date Time Temp Pulse Resp B/P (MAP) Pulse Ox O2 Delivery O2 Flow Rate FiO2 07/20/24 08:59 98.0 105 20 117/83 (94) 99 98.0 07/20/24 08:00 Bi-Pap+ 30 30 07/19/24 19:30 0 Total Intake and Output 07/19/24 07/19/24 07/20/24 15:00 23:00 07:00 Intake Total 0 ml Output Total 1600 ml 2450 ml Balance -1600 ml -2450 ml medications Current Medications Medications Dose Ordered Sig/Jacob Route Start Time Stop Time Status Last Admin Dose Admin Nitroglycerin 0.4 mg Q5MINP PRN SL 07/19/24 01:15 Morphine Sulfate 2 mg Q30M PRN IV 07/19/24 01:15 Aspirin 81 mg DAILY PO 07/19/24 10:00 Atorvastatin Calcium 40 mg HS PO 07/19/24 22:00 Ceftriaxone Sodium 50 ml @ 100 mls/hr DAILY@09 IV 07/19/24 09:00 07/20/24 09:31 100 MLS/HR Azithromycin 250 ml @ 125 mls/hr DAILY IV 07/19/24 10:00 07/20/24 09:32 125 MLS/HR Metolazone 5 mg DAILY PO 07/19/24 10:00 Apixaban 5 mg BID PO 07/19/24 10:00 Pantoprazole Sodium 40 mg DAILY@0600 PO 07/19/24 06:00 07/19/24 06:46 40 MG Potassium Chloride 100 ml @ 50 mls/hr Q2H IV 07/20/24 09:51 Furosemide 40 mg BIDD IV 07/20/24 18:00 Examination Examination General Appearance: Resting at bed.Agitated on times, not cooperative, No acute distress Respiratory: Clear to auscultation, Normal air movement Cardiovascular: Sinus tachycardia, Normal S1, Normal S2 Abdominal: Normal bowel sounds Extremities: No cyanosis, No edema, Normal pulses, No tenderness/swelling Skin: No rashes, No breakdown Neuro: Normal tone, Reflexes 2+ laboratory and microbiology Laboratory Tests 07/20/24 05:05 Test 07/20/24 05:05 Range/Units Serum Glucose 71 L 74-106 mg/dL Problem List/Assessment/Plan Problem List/Assessment/Plan #Acute hypoxic respiratory failure likely due to acute on chronic heart failure systolic/diastolic on exacerbation -currently on BiPAP machine -Echocardiogram is pending -Currently on diuresis with Lasix 40 mg b.i.d. IV -Cardiology consult -I&Os: 4050 in the past 24 hours -Dove catheter -chest x-rays # drug abuse, drug screen positive for fentanyl # agitation #Acute kidney injury likely on chronic kidney disease likely due to VMN # hypokalemia 2.7 -creatinine improving -treat underlying condition -not IV fluids given because of CHF exacerbation(fluid overload) -potassium replacement given cautiously, 60 mEq IV of potassium rider. -potassium levels at 2:00 p.m. 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 Steele Goals of care discussed with the patient for 19 minutes Code status: Full code Plan discussed with: Patient My Orders My Orders Orders - DAIN MILIAN RESIDENT Procedure Category Date Status Time Covid19 Antigen Stacey LAB 07/19/24 Logged Rapid Influenza A&B LAB 07/19/24 Logged 17:43 Potassium Chl PHA 07/20/24 In Process 20meq/100ml 09:51 Potassium LAB 07/20/24 Logged 14:00 Furosemide Injection PHA 07/20/24 In Process (Lasix Injection) 18:00 Date of Service: Jul 20, 2024 Billing Provider: TATIANA STEELE MD Common Visit Codes: [id number] INP/OBS CARE(HIGH) Secondary Visit Codes: [id number] CARE PLAN 30 MINUTES DAIN MILIAN RESIDENT Jul 20, 2024 12:36 TATIANA STEELE MD Jul 20, 2024 18:46
--- NOTE | 2024-07-20 13:09 | DVH ---
CHEST RADIOGRAPH Indication: CHF/pneumonia Technique: Single frontal view of the chest was obtained Comparison: XY CHEST PORTABLE on DOS: 07/18/24 FINDINGS: Lines and Tubes: None Lungs: No focal consolidation. Pleura: No effusion. No pneumothorax. Cardiomediastinal contours: Cardiomegaly Bones: No acute osseous abnormality. IMPRESSION: Cardiomegaly with CHF
[2024-07-20] MEDS ORDERED: POTASSIUM CHL 20MEQ/100ML 100 ML IV STA (17:07)
[2024-07-20] MEDS: POTASSIUM EFFERVESENT TAB 25 MEQ PO ONE (17:30)
[2024-07-20] MEDS: SPIRONOLACTONE 25 MG TAB PO ONE (17:30)
[2024-07-20] MEDS: FUROSEMIDE 40 MG/4 ML VIAL IV SCH (17:36)
--- NOTE | 2024-07-20 21:41 | DVHPN2 ---
Progress Note - Dictate Date Seen: Jul 20, 2024 Medical Necessity Reason Pt with a Central, PICC or Fol: No The following are medically ne: Dove Catheter Subjective Patient was seen and evaluated in follow up. Patient is complaining of generalized pain. UDS is positive for Fentanyl. Patient is on Bi-PAP at 30% FiO2. K 2.7, BUN 67, AQUATICS COORDINATOR 1.79. Chest x-ray shows cardiomegaly with CHF. Echocardiogram is ordered. vital signs Vital Sign Date Time Temp Pulse Resp B/P (MAP) Pulse Ox O2 Delivery O2 Flow Rate FiO2 07/20/24 13:00 98.1 107 18 112/75 (87) 98 98.1 07/20/24 08:00 Bi-Pap+ 30 30 07/19/24 19:30 0 Total Intake and Output 07/19/24 07/19/24 07/20/24 15:00 23:00 07:00 Intake Total 0 ml Output Total 1600 ml 2450 ml Balance -1600 ml -2450 ml medications Current Medications Medications Dose Ordered Sig/Jacob Route Start Time Stop Time Status Last Admin Dose Admin Nitroglycerin 0.4 mg Q5MINP PRN SL 07/19/24 01:15 Morphine Sulfate 2 mg Q30M PRN IV 07/19/24 01:15 Aspirin 81 mg DAILY PO 07/19/24 10:00 Atorvastatin Calcium 40 mg HS PO 07/19/24 22:00 Ceftriaxone Sodium 50 ml @ 100 mls/hr DAILY@09 IV 07/19/24 09:00 07/20/24 09:31 100 MLS/HR Azithromycin 250 ml @ 125 mls/hr DAILY IV 07/19/24 10:00 07/20/24 09:32 125 MLS/HR Metolazone 5 mg DAILY PO 07/19/24 10:00 Apixaban 5 mg BID PO 07/19/24 10:00 Pantoprazole Sodium 40 mg DAILY@0600 PO 07/19/24 06:00 07/19/24 06:46 40 MG Potassium Chloride 100 ml @ 50 mls/hr Q2H IV 07/20/24 09:51 Furosemide 40 mg BIDD IV 07/20/24 18:00 objective GENERAL: Awake, alert, oriented. LUNGS: Clear. CARDIOVASCULAR: Heart sounds are good. ABDOMEN: Soft. EXT: 4+ BLE pitting edema. laboratory and microbiology Laboratory Tests 07/20/24 05:05 Test 07/20/24 05:05 Range/Units Serum Glucose 71 L 74-106 mg/dL Problem List Acute on chronic heart failure, systolic versus diastolic. Cardiomyopathy. NSTEMI type 2 likely due to CHF and pneumonia. Possible pneumonia, Gram-positive versus Gram-negative. Sepsis likely due to pneumonia. ZAHIDA. Hyponatremia. Elevated D-dimer. Chronic history of methamphetamine abuse. Chronic smoker of cigarettes. Assessment/Plan Continued all current supportive medical care. Echocardiogram. Eliquis. Aspirin, Lipitor. IV antibiotics as ordered. Diuretics with Lasix. Morphine for pain management. Nitro SL. GI prophylactics. Additional plan as per the hospital course. Plan discussed with: Patient PHILIP SANTILLAN MD Jul 20, 2024 14:06
[2024-07-21] VITALS (10 sets, daily range): BP systolic 93–119; BP diastolic 66–84; PULSE 102–114; RESP 19–22; TEMP 97.7–98.9; O2SAT 93–100
[2024-07-21 02:58] LABS: Rapid Influenza A Negative (Negative); Rapid Influenza B Negative (Negative)
[2024-07-21 02:59] LABS: COVID19 ANTIGEN SOFIA FIA NEGATIVE (NEGATIVE)
--- NOTE | 2024-07-21 09:07 | DVH ---
CT HEAD WITHOUT CONTRAST INDICATION: ALOC EXAM DATE: 07/21/2024 08:40 AM COMPARISON: None RADIATION DOSE: CTDIvol: 49 mGy, DLP: 849 mGy*cm PROCEDURE: CT scans of the head were obtained from the vertex to the skull base. Sagittal and coronal reconstructions were provided. All CT scans at this medical facility are performed using dose modulation techniques as appropriate t o a performed exam including the following: Automated exposure control was utilized; adjustment of th e MA and/or KV according to patient size; and use of iterative reconstruction technique. FINDINGS: The brain shows normal morphology and gilbert-white matter differentiation, without intracr anial hemorrhage, extra-axial fluid collection, mass effect or acute large vessel infarct. The ventri cles are normal in size. The basal cisterns are patent. The skull and visible facial bones are intact . The paranasal sinuses, mastoid air cells and middle ear cavities are well-aerated. The soft tissues of the scalp are unremarkable. IMPRESSION: No acute intracranial abnormality.
[2024-07-21] MEDS: SPIRONOLACTONE 25 MG TAB PO SCH (09:25)
[2024-07-21 10:37] LABS: Basophils # (auto) 0 10 ^3/uL (0-0.2); Eosinophils # (auto) 0.1 10 ^3/uL (0-0.8); Eosinophils % (auto) 2.2 % (0.0-7.0); Lymphocytes # (auto) 0.8 10 ^3/uL (0.4-5.4); Monocytes # (auto) 0.8 10 ^3/uL (0-1.3); White Blood Cell 6.3 10^3/uL (4.4-10.8)
[2024-07-21 10:39] LABS: Basophils % (auto) 0.4 % (0.0-2.0); Hematocrit 39.8 % (41.0-53.0); Hemoglobin 12.9 g/dL (13.5-17.5); Lymphocytes % (auto) 12.9 % (10.0-50.0); Mean Corpuscular Hemoglobin 26.5 pg (28.0-32.0); Mean Corpuscular Hgb Conc. 32.5 g/dL (32.0-36.0); Mean Corpuscular Volume 81.6 fL (80.0-100.0); Monocytes % (auto) 12.5 % (0.0-12.0); Neutrophils # (auto) 4.5 10 ^3/uL (1.6-8.6); Nucleated Red Blood Cells % 0.1 %; Platelet Count (auto) 302 10^3/uL (140-450); Red Blood Cells 4.87 10^6/uL (4.5-5.90); Red Cell Distribution Width 17.9 % (11.8-14.3)
[2024-07-21 10:49] LABS: Anion Gap 5 (5-15); Calcium 8.9 mg/dL (8.7-10.4); Sodium 138 mmol/L (136-145)
[2024-07-21 10:55] LABS: BUN/Creatinine Ratio 33.7 (10.0-20.0)
[2024-07-21 10:58] LABS: Blood Urea Nitrogen 55 mg/dL (9-23); Carbon Dioxide 38 mmol/L (20-31); Chloride 95 mmol/L (98-107); Glucose 151 mg/dL (74-106); Potassium 3.3 mmol/L (3.5-5.1)
[2024-07-21 11:22] LABS: Base Excess 10.8 mmol/L (-2.0-3.0)
[2024-07-21] MEDS: POTASSIUM EFFERVESENT TAB 25 MEQ PO ONE ×2 (13:45→14:30)
[2024-07-21] MEDS: FUROSEMIDE 40 MG/4 ML VIAL IV ONE (14:15)
[2024-07-21] MEDS: EMPAGLIFLOZIN 10 MG TAB PO ONE (14:45)
[2024-07-21 15:26] LABS: Base Excess 7.2 mmol/L (-2.0-3.0)
[2024-07-21] MEDS: acetaZOLAMIDE SODIUM 500 MG VL IV ONE (16:00)
--- NOTE | 2024-07-21 18:03 | DVHPN2 ---
Progress Note - Dictate Date Seen: Jul 21, 2024 Medical Necessity Reason Pt with a Central, PICC or Fol: No The following are medically ne: Dove Catheter Subjective Patient was seen and evaluated in follow up. Patient is complaining of generalized pain. Patient is now on 3 LPM NC. K 3.3, CO2 38, BUN 55, VOICE OVER ARTIST 1.63. Influenza A/B is negative. Patients electrolytes are being replaced. vital signs Vital Sign Date Time Temp Pulse Resp B/P (MAP) Pulse Ox O2 Delivery O2 Flow Rate FiO2 07/21/24 09:24 119/84 07/21/24 09:13 98 Nasal Cannula 3.0 07/21/24 09:13 32 07/21/24 08:55 97.8 108 20 97.8 Total Intake and Output 07/20/24 07/20/24 07/21/24 15:00 23:00 07:00 Intake Total 400 ml 340 ml 1200 ml Output Total 4700 ml 900 ml Balance 400 ml -4360 ml 300 ml medications Current Medications Medications Dose Ordered Sig/Jacob Route Start Time Stop Time Status Last Admin Dose Admin Nitroglycerin 0.4 mg Q5MINP PRN SL 07/19/24 01:15 Morphine Sulfate 2 mg Q30M PRN IV 07/19/24 01:15 Aspirin 81 mg DAILY PO 07/19/24 10:00 07/21/24 09:24 81 MG Atorvastatin Calcium 40 mg HS PO 07/19/24 22:00 07/20/24 21:29 40 MG Ceftriaxone Sodium 50 ml @ 100 mls/hr DAILY@09 IV 07/19/24 09:00 07/21/24 09:21 100 MLS/HR Azithromycin 250 ml @ 125 mls/hr DAILY IV 07/19/24 10:00 07/21/24 09:24 125 MLS/HR Metolazone 5 mg DAILY PO 07/19/24 10:00 07/21/24 09:24 5 MG Apixaban 5 mg BID PO 07/19/24 10:00 07/21/24 09:22 5 MG Pantoprazole Sodium 40 mg DAILY@0600 PO 07/19/24 06:00 07/21/24 05:23 40 MG Potassium Chloride 100 ml @ 50 mls/hr Q2H IV 07/20/24 09:51 07/20/24 21:58 50 MLS/HR Furosemide 40 mg BIDD IV 07/20/24 18:00 Spironolactone 25 mg DAILY PO 07/21/24 10:00 07/21/24 09:25 25 MG objective GENERAL: Awake, alert, oriented. LUNGS: Clear. CARDIOVASCULAR: Heart sounds are good. ABDOMEN: Soft. EXT: 4+ BLE pitting edema. laboratory and microbiology Laboratory Tests 07/21/24 09:49 Test 07/21/24 09:49 Range/Units Serum Glucose 151 H 74-106 mg/dL Problem List Acute on chronic heart failure, systolic versus diastolic. Cardiomyopathy. NSTEMI type 2 likely due to CHF and pneumonia. Possible pneumonia, Gram-positive versus Gram-negative. Sepsis likely due to pneumonia. ZAHIDA. Hyponatremia. Elevated D-dimer. Chronic history of methamphetamine abuse. Chronic smoker of cigarettes. Assessment/Plan Continued all current supportive medical care. Echocardiogram. Eliquis. Aspirin, Lipitor. Jardiance. Diuretics with Lasix. Additional plan as per the hospital course. Plan discussed with: Patient PHILIP SANTILLAN MD Jul 21, 2024 11:58
--- NOTE | 2024-07-21 19:13 | DVHSR ---
APPROVED REPORT EXAM: Two-dimensional and M-mode echocardiogram with Doppler and color Doppler. Blood Pressure: 108/78 mmHg INDICATION chf RISK FACTORS Height: 5'8, Weight: 180 DIMENSIONS LVDd6.5 (3.8-5.7cm)LA (2D)4.9 (1.9-4.0cm)Aortic Root3.5 (2.0-3.7cm) LVDs5.8 (2.5-4.0cm)LA (MM) (1.9-4.0cm)Aortic Cusp Exc1.9 (1.5-2.0cm) EF (%) 15.0 (55-70%)Rt. Atrium6.1 (1.9-4.0cm)Asc. Aorta3.2 cm IVSd0.8 (0.7-1.1cm)RV (D) (1.8-2.4cm) PWd0.8 (0.7-1.1cm) Mitral Valve MitralMitral Stenosis E wave0.75m/sMV Mean GR.1mmHg A wavem/sMV Peak GR.77mmHg E/A ratio0.02D MVAcm2 DECEL [id number] 1/2 Timems Aortic Valve Aortic ValveAortic Stenosis V10.54m/Ricki Mean GR.1mmHg V20.74m/Ricki Peak GR.2mmHg LVOT Diameter2.2 (1.8-2.4cm)Doppler AVA2.77cm2 Pulmonic Valve V20.81m/s Tricuspid Valve TR Velocity2.78m/s [id number] Conclusion LV IS REMARKABLY DILATED SEVERE LV GLOBAL HYPOKINESIS LV EF IS ONLY 15 % HEAVY SMOKE WITH ECHOGENICITY IN MID LV CONSISTENT WITH EARLY THROMBUS FORMATION NORMAL VALVES NO EFFUSION MODERATE DEGREE PULMONARY HYPERTENSION RVSP IS 46 MM OF HG AND IS MODERATELY HIGH
--- NOTE | 2024-07-21 19:45 | DVHPNRES ---
Progress Note Date Seen: Jul 21, 2024 Resident Creating Document: DAIN MILIAN RESIDENT Medical Necessity Reason Pt with a Central, PICC or Fol: No The following are medically ne: Dove Catheter Subjective Review of Systems 44-year-old male patient, recently admitted to the hospital however patient left AMA on 07/18/2024 and come back within few hours to emergency department on 07/19/2024, with past medical history of heart failure, methamphetamine abuse, nicotine dependency, who presented to the emergency department with a chief complaint of shortness of breaths on minimal exertion, productive cough, and bilateral lower extremity swelling. Patient was started on Lasix 80 mg b.i.d. IV, carvedilol was held and the patient was given Ativan p.r.n. as he was agitated. Patient follows Dr. Pierce in outpatient, he is currently on following home meds: Aspirin, atorvastatin, Lasix, carvedilol, Entresto. Cardiology was consulted, who recommends to continue current medical management. Echocardiogram showed ejection fraction 15% and mild/moderate pulmonary hypertension 46 mmHg rsvp Patient was examined at bedside, reports feeling better, there is no dizziness or any symptoms of hypoperfusion, currently on hypotension. A new CMP was ordered to monitor electrolyte and transaminases. Patient is currently on Lasix 40 mg b.i.d. , spironolactone 25 p.o. once daily Patient continue telemetry. Strict I&Os Balance:-3660 In the afternoon, patient was evaluated at bedside, patient more alert and oriented, x3. Patient was started on nasal cannula 3 L oxygenating until 98 % Cardiology on board. Patient reports: No new complaints Changes from previous H/P or p: No Changes Objective vital signs Vital Sign Date Time Temp Pulse Resp B/P (MAP) Pulse Ox O2 Delivery O2 Flow Rate FiO2 07/21/24 18:28 93/88 07/21/24 17:00 98.4 114 22 98 98.4 07/21/24 09:13 Nasal Cannula 3.0 07/21/24 09:13 32 Total Intake and Output 07/20/24 07/20/24 07/21/24 15:00 23:00 07:00 Intake Total 400 ml 340 ml 1200 ml Output Total 4700 ml 900 ml Balance 400 ml -4360 ml 300 ml medications Current Medications Medications Dose Ordered Sig/Jacob Route Start Time Stop Time Status Last Admin Dose Admin Aspirin 81 mg DAILY PO 07/19/24 10:00 07/21/24 09:24 81 MG Atorvastatin Calcium 40 mg HS PO 07/19/24 22:00 07/20/24 21:29 40 MG Apixaban 5 mg BID PO 07/19/24 10:00 07/21/24 09:22 5 MG Furosemide 40 mg BIDD IV 07/20/24 18:00 07/21/24 18:28 40 MG Spironolactone 25 mg DAILY PO 07/21/24 10:00 07/21/24 09:25 25 MG Empaglifozin 10 mg DAILY PO 07/22/24 10:00 Examination Examination General Appearance: Alert, Oriented X3, Cooperative, No acute distress Respiratory: Clear to auscultation, Normal air movement Cardiovascular: Sinus tachycardia, Normal S1, Normal S2 Abdominal: Normal bowel sounds Extremities: No cyanosis, edema 1+, Normal pulses, No tenderness/swelling Skin: No rashes, No breakdown Neuro: Normal speech, Strength at 5/5 X4 ext, Normal tone, Sensation intact, Cranial nerves 3-12 NL, Reflexes 2+ laboratory and microbiology Laboratory Tests 07/21/24 09:49 Test 07/21/24 09:49 Range/Units Serum Glucose 151 H 74-106 mg/dL Problem List/Assessment/Plan Problem List/Assessment/Plan #Acute hypoxic respiratory failure likely due to acute on chronic heart failure systolic/diastolic on exacerbation #metabolic alkalosis due to diuretics -currently on BiPAP machine -Echocardiogram is pending -Currently on diuresis with Lasix 40 mg b.i.d. IV -spironolactone 25 p.o. 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 Steele Goals of care discussed with the patient for 19 minutes Code status: Full code Plan discussed with: Patient My Orders My Orders Orders - DAIN MILIAN RESIDENT Procedure Category Date Status Time Pt Request For Service PT 07/21/24 Logged 10:50 Abg W/ Co-Ox RT 07/21/24 Logged 10:50 Abg W/ Co-Ox RT 07/21/24 Logged 14:05 Communication Order ORDERS 07/21/24 Transmitted 14:16 Discontinue Dove ALONZO 07/21/24 In Process Catheter 14:22 Empagliflozin PHA 07/22/24 In Process (Jardiance) 10:00 Comprehensive LAB 07/21/24 Logged Metabolic Panel 18:58 Date of Service: Jul 21, 2024 Billing Provider: TATIANA STEELE MD Common Visit Codes: [id number] INP/OBS CARE(HIGH) DAIN MILIAN RESIDENT Jul 21, 2024 19:45 TATIANA STEELE MD Jul 23, 2024 18:11
[2024-07-21 20:47] LABS: Anion Gap 6 (5-15); BUN/Creatinine Ratio 31.2 (10.0-20.0); Bilirubin, Total 1.2 mg/dL (0.2-1.0); Glucose 103 mg/dL (74-106)
[2024-07-21 20:48] LABS: Total Protein 6.7 g/dL (5.7-8.2)
[2024-07-21 20:52] LABS: Alanine Aminotransferase 255 U/L (7-40); Alkaline Phosphatase 129 U/L (46-116); Aspartate Aminotransferase 294 U/L (13-40); Blood Urea Nitrogen 53 mg/dL (9-23); Calcium 8.7 mg/dL (8.7-10.4); Carbon Dioxide 34 mmol/L (20-31); Chloride 95 mmol/L (98-107); Sodium 135 mmol/L (136-145)
[2024-07-22] VITALS (10 sets, daily range): BP systolic 99–111; BP diastolic 71–81; PULSE 60–108; RESP 14–18; TEMP 97.6–98.1; O2SAT 93–100
[2024-07-22 07:31] LABS: Anion Gap 9 (5-15); Basophils # (auto) 0.1 10 ^3/uL (0-0.2); Basophils % (auto) 1.2 % (0.0-2.0); Calcium 8.8 mg/dL (8.7-10.4); Carbon Dioxide 31 mmol/L (20-31); Eosinophils # (auto) 0.1 10 ^3/uL (0-0.8); Monocytes # (auto) 0.7 10 ^3/uL (0-1.3); Monocytes % (auto) 13.5 % (0.0-12.0); Neutrophils # (auto) 3.4 10 ^3/uL (1.6-8.6); Nucleated Red Blood Cells % 0.4 %; Potassium 4.2 mmol/L (3.5-5.1); White Blood Cell 5.2 10^3/uL (4.4-10.8)
[2024-07-22 07:32] LABS: Glucose 84 mg/dL (74-106)
[2024-07-22 07:34] LABS: Eosinophils % (auto) 2.3 % (0.0-7.0); Hematocrit 37.7 % (41.0-53.0); Hemoglobin 12.3 g/dL (13.5-17.5); Lymphocytes # (auto) 0.9 10 ^3/uL (0.4-5.4); Lymphocytes % (auto) 18.1 % (10.0-50.0); Mean Corpuscular Hemoglobin 26.8 pg (28.0-32.0); Mean Corpuscular Hgb Conc. 32.6 g/dL (32.0-36.0); Mean Corpuscular Volume 82.3 fL (80.0-100.0); Neutrophils % (auto) 64.9 % (37.0-80.0); Platelet Count (auto) 260 10^3/uL (140-450); Red Blood Cells 4.59 10^6/uL (4.5-5.90); Red Cell Distribution Width 17.7 % (11.8-14.3)
[2024-07-22 07:36] LABS: BUN/Creatinine Ratio 25.6 (10.0-20.0)
[2024-07-22 07:41] LABS: Blood Urea Nitrogen 45 mg/dL (9-23); Chloride 94 mmol/L (98-107); Sodium 134 mmol/L (136-145)
[2024-07-22] MEDS: EMPAGLIFLOZIN 10 MG TAB PO SCH (09:22)
[2024-07-22] MEDS ORDERED: AZITHROMYCIN 250 MG TAB PO SCH (10:00)
[2024-07-22] MEDS: ACETAMINOPHEN 325 MG TAB PO ONE (10:50)
[2024-07-22 11:13] LABS: Base Excess 9.1 mmol/L (-2.0-3.0)
--- NOTE | 2024-07-22 13:38 | DVHPNRES ---
Progress Note Date Seen: Jul 22, 2024 Resident Creating Document: DAIN MILIAN RESIDENT Medical Necessity Reason Pt with a Central, PICC or Fol: No The following are medically ne: Dove Catheter Subjective Review of Systems 44-year-old male patient, recently admitted to the hospital however patient left AMA on 07/18/2024 and come back within few hours to emergency department on 07/19/2024, with past medical history of heart failure, methamphetamine abuse, nicotine dependency, who presented to the emergency department with a chief complaint of shortness of breaths on minimal exertion, productive cough, and bilateral lower extremity swelling. Patient was started on Lasix 80 mg b.i.d. IV, carvedilol was held and the patient was given Ativan p.r.n. as he was agitated. Patient follows Dr. Pierce in outpatient, he is currently on following home meds: Aspirin, atorvastatin, Lasix, carvedilol, Entresto. Cardiology was consulted, who recommends to continue current medical management. Echocardiogram showed ejection fraction 15% and mild/moderate pulmonary hypertension 46 mmHg rsvp Patient was examined at bedside, reports feeling better, there is no dizziness or any symptoms of hypoperfusion, currently on hypotension. Patient is currently on Lasix 40 mg decreased until once a day , spironolactone 25 p.o. once daily Lungs are clear and no lower extremity edema, patient is currently breathing better and more alert and oriented. The patient Patient continue telemetry. Strict I&Os In the afternoon, patient was evaluated at bedside, patient more alert and oriented, x3. Patient was started on nasal cannula 3 L oxygenating until 98 % Cardiology on board. Considering start metoprolol 25 XL daily. Patient reports: Feels better Changes from previous H/P or p: Changes Review of Systems: HEENT:Normal, CVS:Normal Objective vital signs Vital Sign Date Time Temp Pulse Resp B/P (MAP) Pulse Ox O2 Delivery O2 Flow Rate FiO2 07/22/24 13:00 97.6 72 16 107/76 (86) 96 97.6 07/22/24 12:41 21 07/22/24 07:54 Nasal Cannula* 3 Total Intake and Output 07/21/24 07/21/24 07/22/24 15:00 23:00 07:00 Intake Total 300 ml 870 ml Output Total 350 ml 600 ml Balance 300 ml 520 ml -600 ml medications Current Medications Medications Dose Ordered Sig/Jacob Route Start Time Stop Time Status Last Admin Dose Admin Aspirin 81 mg DAILY PO 07/19/24 10:00 07/22/24 09:22 81 MG Atorvastatin Calcium 40 mg HS PO 07/19/24 22:00 07/21/24 22:35 40 MG Apixaban 5 mg BID PO 07/19/24 10:00 07/22/24 09:22 5 MG Spironolactone 25 mg DAILY PO 07/21/24 10:00 07/22/24 09:22 25 MG Empaglifozin 10 mg DAILY PO 07/22/24 10:00 07/22/24 09:22 10 MG Furosemide 40 mg DAILY IV 07/23/24 10:00 Examination Examination General Appearance: Alert, Oriented X3, Cooperative, No acute distress Respiratory: Clear to auscultation, Normal air movement Cardiovascular: Regular rate, Normal S1, Normal S2 Abdominal: Normal bowel sounds Extremities: No cyanosis, No edema, Normal pulses, No tenderness/swelling Skin: No rashes, No breakdown Neuro: Normal gait, Normal speech, Strength at 5/5 X4 ext, Normal tone, Sensation intact, Reflexes 2+ Psych/Mental Status: Mental status NL, Mood NL Examination: GENERAL:Normal, HEENT:Normal, NECK:Normal, LUNGS:Normal, CVS:Abnormal, ABDOMEN:Normal, MSK:Normal, SKIN:Normal, NEURO:Normal, :Normal laboratory and microbiology Laboratory Tests 07/22/24 06:18 Test 07/22/24 06:18 Range/Units Serum Glucose 84 74-106 mg/dL Problem List/Assessment/Plan Problem List/Assessment/Plan #Acute hypoxic respiratory failure likely due to acute on chronic heart failure systolic/diastolic on exacerbation #metabolic alkalosis due to diuretics -currently on BiPAP machine -Echocardiogram is pending -Currently on diuresis with Lasix 40 mg b.i.d. IV -spironolactone 25 p.o. 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 Case discussed with Dr. Fountain Goals of care discussed with the patient for 19 minutes Code status: Full code Plan discussed with: Patient My Orders My Orders Orders - DAIN MILIAN RESIDENT Procedure Category Date Status Time Abg W/ Co-Ox RT 07/21/24 Logged 14:05 Communication Order ORDERS 07/21/24 Transmitted 14:16 Discontinue Dove ALONZO 07/21/24 In Process Catheter 14:22 Empagliflozin PHA 07/22/24 In Process (Jardiance) 10:00 Abg W/ Co-Ox RT 07/21/24 Logged 19:48 Abg W/ Co-Ox RT 07/22/24 Logged 10:29 Furosemide Injection PHA 07/23/24 In Process (Lasix Injection) 10:00 Date of Service: Jul 22, 2024 Billing Provider: KAILASH HSU MD Common Visit Codes: [id number] INP/OBS CARE(HIGH) DAIN MILIAN RESIDENT Jul 22, 2024 13:38 KAILASH HSU MD Jul 24, 2024 21:04
[2024-07-22] MEDS: METOPROLOL SUCCINATE XL 50 MG TAB PO ONE (17:02)
--- NOTE | 2024-07-22 21:53 | DVHPN2 ---
Progress Note - Dictate Date Seen: Jul 22, 2024 Medical Necessity Reason Pt with a Central, PICC or Fol: No The following are medically ne: Dove Catheter Subjective Patient was seen and evaluated in follow up. Overnight, patient was combative with nursing staff and refusing to wear Bi-Pap. Patient is complaining of generalized pain. Patient is on 3 LPM NC. Patient's clinical condition is improving. BUN 45, DOOR SLINGER 1.76. Telemetry reviewed. vital signs Vital Sign Date Time Temp Pulse Resp B/P (MAP) Pulse Ox O2 Delivery O2 Flow Rate FiO2 07/22/24 17:02 106 101/72 07/22/24 16:54 98.0 14 98 98.0 07/22/24 12:41 21 07/22/24 07:54 Nasal Cannula* 3 Total Intake and Output 07/21/24 07/21/24 07/22/24 15:00 23:00 07:00 Intake Total 300 ml 870 ml Output Total 350 ml 600 ml Balance 300 ml 520 ml -600 ml medications Current Medications Medications Dose Ordered Sig/Jacob Route Start Time Stop Time Status Last Admin Dose Admin Aspirin 81 mg DAILY PO 07/19/24 10:00 07/22/24 09:22 81 MG Atorvastatin Calcium 40 mg HS PO 07/19/24 22:00 07/21/24 22:35 40 MG Apixaban 5 mg BID PO 07/19/24 10:00 07/22/24 09:22 5 MG Spironolactone 25 mg DAILY PO 07/21/24 10:00 07/22/24 09:22 25 MG Empaglifozin 10 mg DAILY PO 07/22/24 10:00 07/22/24 09:22 10 MG Furosemide 40 mg DAILY IV 07/23/24 10:00 Metoprolol Succinate 25 mg DAILY PO 07/23/24 10:00 objective GENERAL: Awake, alert, oriented. LUNGS: Clear. CARDIOVASCULAR: Heart sounds are good. ABDOMEN: Soft. EXT: 4+ BLE pitting edema. laboratory and microbiology Laboratory Tests 07/22/24 06:18 Test 07/22/24 06:18 Range/Units Serum Glucose 84 74-106 mg/dL Problem List Acute on chronic heart failure, systolic versus diastolic. Cardiomyopathy. NSTEMI type 2 likely due to CHF and pneumonia. Possible pneumonia, Gram-positive versus Gram-negative. Sepsis likely due to pneumonia. ZAHIDA. Hyponatremia. Elevated D-dimer. Chronic history of methamphetamine abuse. Chronic smoker of cigarettes. Assessment/Plan Continued all current supportive medical care. Echocardiogram. Eliquis. Aspirin, Lipitor. Jardiance. Diuretics with Lasix. Additional plan as per the hospital course. Plan discussed with: Patient PHILIP SANTILLAN MD Jul 22, 2024 18:48
[2024-07-23 01:00] VITALS: BP 95/70; PULSE 95; RESP 18; TEMP 98.8; O2SAT 94
[2024-07-23 05:00] VITALS: BP 96/70; PULSE 98; RESP 18; TEMP 98; O2SAT 98
[2024-07-23 07:19] LABS: Basophils # (auto) 0.1 10 ^3/uL (0-0.2); Eosinophils # (auto) 0.1 10 ^3/uL (0-0.8); Hemoglobin 13.1 g/dL (13.5-17.5); Lymphocytes # (auto) 0.8 10 ^3/uL (0.4-5.4); Monocytes # (auto) 0.6 10 ^3/uL (0-1.3)
[2024-07-23 07:22] LABS: Basophils % (auto) 1.2 % (0.0-2.0); Eosinophils % (auto) 1.4 % (0.0-7.0); Hematocrit 40.9 % (41.0-53.0); Lymphocytes % (auto) 12.2 % (10.0-50.0); Mean Corpuscular Hemoglobin 25.8 pg (28.0-32.0); Mean Corpuscular Volume 80.7 fL (80.0-100.0); Monocytes % (auto) 8.5 % (0.0-12.0); Neutrophils % (auto) 76.7 % (37.0-80.0); Nucleated Red Blood Cells % 0.1 %; Platelet Count (auto) 294 10^3/uL (140-450); Red Blood Cells 5.07 10^6/uL (4.5-5.90); Red Cell Distribution Width 18.1 % (11.8-14.3); White Blood Cell 6.5 10^3/uL (4.4-10.8)
[2024-07-23 07:28] LABS: Potassium 3.8 mmol/L (3.5-5.1)
[2024-07-23 07:29] LABS: Anion Gap 11 (5-15); Carbon Dioxide 28 mmol/L (20-31)
[2024-07-23 07:30] LABS: Calcium 9.1 mg/dL (8.7-10.4)
[2024-07-23 07:46] LABS: Chloride 92 mmol/L (98-107); Glucose 108 mg/dL (74-106); Sodium 131 mmol/L (136-145)
[2024-07-23 07:50] LABS: BUN/Creatinine Ratio 28.6 (10.0-20.0)
[2024-07-23 07:53] LABS: Blood Urea Nitrogen 59 mg/dL (9-23)
[2024-07-23 08:00] VITALS: RESP 18
[2024-07-23] MEDS ORDERED: FUROSEMIDE 40 MG/4 ML VIAL IV SCH (10:00)
[2024-07-23] MEDS ORDERED: METOPROLOL SUCCINATE XL 50 MG TAB PO SCH (10:00)
--- NOTE | 2024-07-23 16:09 | DVHPN2 ---
Progress Note - Dictate Date Seen: Jul 23, 2024 Medical Necessity Reason Pt with a Central, PICC or Fol: No The following are medically ne: Dove Catheter Subjective Patient was seen and evaluated in follow up. No overnight events. Patient is on oxygen 4 LPM via nasal canula. Echocardiogram shows an EF of only 15%, heavy smoke, consistent with early thrombus formation, moderate pulm hypertension. He denies any cardiac symptoms. Telemetry reviewed. vital signs Vital Sign Date Time Temp Pulse Resp B/P (MAP) Pulse Ox O2 Delivery O2 Flow Rate FiO2 07/23/24 08:00 18 Nasal Cannula* 4 36 07/23/24 05:00 98.0 98 96/70 (79) 98 98.0 Total Intake and Output 07/22/24 07/22/24 07/23/24 15:00 23:00 07:00 Intake Total 820 ml 100 ml Output Total 1150 ml 250 ml Balance -330 ml -150 ml objective GENERAL: Awake, alert, oriented. LUNGS: Clear. CARDIOVASCULAR: Heart sounds are good. ABDOMEN: Soft. EXT: 4+ BLE pitting edema. laboratory and microbiology Laboratory Tests 07/23/24 05:43 Test 07/23/24 05:43 Range/Units Serum Glucose 108 H 74-106 mg/dL Problem List Acute on chronic heart failure, systolic versus diastolic. Cardiomyopathy. NSTEMI type 2 likely due to CHF and pneumonia. Possible pneumonia, Gram-positive versus Gram-negative. Sepsis likely due to pneumonia. ZAHIDA. Hyponatremia. Elevated D-dimer. Chronic history of methamphetamine abuse. Chronic smoker of cigarettes. Pulmonary HTN. Assessment/Plan Continued all current supportive medical care. Eliquis. Aspirin, Lipitor. Jardiance. Diuretics with Lasix. Additional plan as per the hospital course. Plan discussed with: Patient PHILIP SANTILLAN MD Jul 23, 2024 16:09
--- NOTE | 2024-07-23 16:41 | DVHDSRES ---
Discharge Summary Date of Admission Resident Creating Document: LUC GARCIA RESIDENT Jul 19, 2024 at 01:10 Date of Discharge: Jul 23, 2024 Admitting Diagnosis Acute hypoxic respiratory failure Labs/Diagnostic Data: Laboratory Results Test 07/23/24 05:43 07/22/24 11:05 07/21/24 19:49 07/21/24 15:18 White Blood Count 6.5 10^3/uL (4.4-10.8) Red Blood Count 5.07 10^6/uL (4.5-5.90) Hemoglobin 13.1 g/dL (13.5-17.5) Hematocrit 40.9 % (41.0-53.0) Mean Corpuscular Volume 80.7 fL (80.0-100.0) Mean Corpuscular Hemoglobin 25.8 pg (28.0-32.0) Mean Corpuscular Hemoglobin Concent 32.0 g/dL (32.0-36.0) Red Cell Distribution Width 18.1 % (11.8-14.3) Platelet Count 294 10^3/uL (140-450) Mean Platelet Volume 8.0 fL (6.9-10.8) Neutrophils (%) (Auto) 76.7 % (37.0-80.0) Lymphocytes (%) (Auto) 12.2 % (10.0-50.0) Monocytes (%) (Auto) 8.5 % (0.0-12.0) Eosinophils (%) (Auto) 1.4 % (0.0-7.0) Basophils (%) (Auto) 1.2 % (0.0-2.0) Neutrophils # (Auto) 5.0 10 ^3/uL (1.6-8.6) Lymphocytes # (Auto) 0.8 10 ^3/uL (0.4-5.4) Monocytes # (Auto) 0.6 10 ^3/uL (0-1.3) Eosinophils # (Auto) 0.1 10 ^3/uL (0-0.8) Basophils # (Auto) 0.1 10 ^3/uL (0-0.2) Nucleated Red Blood Cells 0.1 % Sodium Level 131 mmol/L (136-145) Potassium Level 3.8 mmol/L (3.5-5.1) Chloride Level 92 mmol/L (98-107) Carbon Dioxide Level 28 mmol/L (20-31) Anion Gap 11 (5-15) Blood Urea Nitrogen 59 mg/dL (9-23) Creatinine 2.06 mg/dL (0.700-1.30) Glomerular Filtration Rate Calc 40 mL/min (>90) BUN/Creatinine Ratio 28.6 (10.0-20.0) Serum Glucose 108 mg/dL (74-106) Calcium Level 9.1 mg/dL (8.7-10.4) Blood Gas Specimen Type Arterial Blood Gas Sample Site Right radial Blood Gas Patient Temperature 37.0 Arterial Blood Date Drawn [id number] Arterial Blood pH 7.564 (7.350-7.450) Arterial Blood Partial Pressure CO2 35.7 mmHg (35.0-48.0) Arterial Blood Partial Pressure O2 80.0 mmHg (83.0-108.0) Arterial Blood HCO3 31.5 mmol/L (21.0-28.0) Arterial Blood Oxygen Saturation 95.7 % (94.0-98.0) Arterial Blood Base Excess 9.1 mmol/L (-2.0-3.0) Arterial Blood Oxyhemoglobin 94.5 % (94.0-98.0) Arterial Blood Carboxyhemoglobin 1.0 % (0.5-1.5) Arterial Blood Methemoglobin 0.3 % (0.0-1.5) Oscar Test Yes Blood Gas Total Hemoglobin 13.90 g/dL (13.5-17.5) Blood Gas Modality Room air FiO2 % 21.0 Blood Gas Critical Value Read Back Yes Blood Gas Notified Whom Bora garcía md Blood Gas Notified Time [id number] Blood Gas Notified By Himanshu chester rrt Total Bilirubin 1.2 mg/dL (0.2-1.0) Aspartate Amino Transferase (AST) 294 U/L (13-40) Alanine Aminotransferase (ALT) 255 U/L (7-40) Alkaline Phosphatase 129 U/L (46-116) Total Protein 6.7 g/dL (5.7-8.2) Albumin 3.0 g/dL (3.2-4.8) Blood Gas Liter Flow 3.00 Test 07/21/24 02:00 07/20/24 05:05 07/20/24 00:38 07/19/24 22:36 Influenza Type A Antigen Negative (Negative) Influenza Type B Antigen Negative (Negative) SARS-CoV-2 Antigen (Rapid) Negative (NEGATIVE) Prothrombin Time 15.0 sec (9.3-11.8) Prothrombin Time INR 1.45 (0.9-1.15) Activated Partial Thromboplast Time 30.5 SEC (24.5-34.5) Lactic Acid Level 1.5 mmol/L (0.4-2.0) Magnesium Level 2.2 mg/dL (1.6-2.6) Vitamin B12 Level 3470 pg/mL (211-911) Vitamin D 25-Hydroxy 39.5 ng/mL (30.0-100) Blood Gas EPAP 5 Blood Gas IPAP 12 POC Glucose 86 mg/dl (70-106) Test 07/19/24 18:40 07/19/24 15:01 07/19/24 01:32 07/18/24 23:43 Blood Gas Set Respiration Rate 12.0 Blood Gas Spontaneous Rate 18 Urine Color Colorless (Yellow) Urine Clarity Clear (Clear) Urine pH 5.5 (5.0-9.0) Urine Specific [place] 1.009 (1.001-1.035) Urine Protein 1+ (Negative) Urine Ketones Negative (Negative) Urine Blood 3+ /uL (Negative) Urine Nitrite Negative (Negative) Urine Bilirubin Negative (Negative) Urine Urobilinogen Normal mg/dL (Negative) Urine Leukocyte Esterase 2+ /uL (Negative) Urine RBC 639 /hpf (0 - 3) Urine WBC 16 /hpf (0 - 3) Urine Squamous Epithelial Cells None seen /hpf (<5) Urine Bacteria Few /hpf (None Seen) Urine Hyaline Casts Mod /lpf (0 - 2) Urine Mucus Few (None Seen) Urine Creatinine 30.75 mg/dL (30.0-125.0) Urine Protein/Creatinine Ratio 2.19 Urine Sodium 63 mmol/L (40-220) Urine Glucose Normal mg/dL (Normal) Urine Total Protein 67.4 mg/dL (1-14) Urine Opiates Screen Neg (NEGATIVE) Urine Fentanyl Screen Pos (NEGATIVE) Urine Barbiturates Screen Neg (NEGATIVE) Urine Phencyclidine Screen Neg (NEGATIVE) Urine Amphetamines Screen Neg (NEGATIVE) Urine Benzodiazepines Screen Neg (NEGATIVE) Urine Cocaine Screen Neg (NEGATIVE) Urine Cannabinoids Screen Neg (NEGATIVE) Troponin I High Sensitivity 70 ng/L (</=54) Plasma/Serum Blood Alcohol < 3.0 mg/dL (<10) Test 07/18/24 22:53 B-Type Natriuretic Peptide > 5000.00 pg/mL (0-100) Other Laboratory Tests 07/23/24 05:43 Brief Hx & Hospital Course: 44-year-old male patient, recently admitted to the hospital however patient left AMA on 07/18/2024 and come back within few hours to emergency department on 07/19/2024, with past medical history of heart failure, methamphetamine abuse, nicotine dependency, who presented to the emergency department with a chief complaint of shortness of breaths on minimal exertion, productive cough, and bilateral lower extremity swelling. Patient was started on Lasix 80 mg b.i.d. IV, carvedilol was held and the patient was given Ativan p.r.n. as he was agitated. Patient follows Dr. Pierce in outpatient, he is currently on following home meds: Aspirin, atorvastatin, Lasix, carvedilol, Entresto. Cardiology was consulted, who recommends to continue current medical management. Echocardiogram showed ejection fraction 15% and mild/moderate pulmonary hypertension 46 mmHg rsvp Patient was examined at bedside, reports feeling better, there is no dizziness or any symptoms of hypoperfusion, currently on hypotension. Patient is currently on Lasix 40 mg decreased until once a day , spironolactone 25 p.o. once daily Lungs are clear and no lower extremity edema, patient is currently breathing better and more alert and oriented. The patient Patient continue telemetry. Strict I&Os In the afternoon, patient was evaluated at bedside, patient more alert and oriented, x3. Patient was started on nasal cannula 3 L oxygenating until 98 % Echocardiogram showed EF 15%. Cardiology was on board. Considered metoprolol 25 XL daily. To the in the morning patient left AMA before evaluating the patient. 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 Patient was counseled about treatment plan, medications, possible side effects, patientverbalized understanding. All questions were answered to the best of my ability. This discharge took greater then 30 minutes in planning, reviewing documentation, counseling the patient, and discussing with other team members." ASSESSMENT ASSESSMENT Assessment Date of Service: Jul 23, 2024 Billing Provider: KAILASH HSU MD Common Visit Codes: 36800-XSJ/OBS DISCH DAY >30min LUC GARCIA RESIDENT Jul 23, 2024 16:41 KAILASH HSU MD Jul 24, 2024 21:53
--- NOTE | 2024-07-23 22:30 | DVHPN2 ---
Progress Note - Dictate Date Seen: Jul 23, 2024 Medical Necessity Reason Pt with a Central, PICC or Fol: No The following are medically ne: Dove Catheter vital signs Vital Sign Date Time Temp Pulse Resp B/P (MAP) Pulse Ox O2 Delivery O2 Flow Rate FiO2 07/23/24 08:00 18 Nasal Cannula* 4 36 07/23/24 05:00 98.0 98 96/70 (79) 98 98.0 Total Intake and Output 07/22/24 07/22/24 07/23/24 15:00 23:00 07:00 Intake Total 820 ml 100 ml Output Total 1150 ml 250 ml Balance -330 ml -150 ml objective GENERAL: Awake, alert, oriented. LUNGS: Clear. CARDIOVASCULAR: Heart sounds are good. ABDOMEN: Soft. EXT: 4+ BLE pitting edema. laboratory and microbiology Laboratory Tests 07/23/24 05:43 Test 07/23/24 05:43 Range/Units Serum Glucose 108 H 74-106 mg/dL Problem List Acute on chronic heart failure, systolic versus diastolic. Cardiomyopathy. NSTEMI type 2 likely due to CHF and pneumonia. Possible pneumonia, Gram-positive versus Gram-negative. Sepsis likely due to pneumonia. ZAHIDA. Hyponatremia. Elevated D-dimer. Chronic history of methamphetamine abuse. Chronic smoker of cigarettes. Assessment/Plan Continued all current supportive medical care. Echocardiogram. Eliquis. Aspirin, Lipitor. Jardiance. Diuretics with Lasix. Additional plan as per the hospital course. Plan discussed with: Patient PHILIP SANTILLAN MD Jul 23, 2024 16:05
== END 2024-07-23 08:36 | disposition left against medical advice (07) | DRG 720 ==
LOC: ER 22:02 → EDBD 22:02 → EDUNIT# 22:02 → TELE 07-19 01:10 → TELE-WESTW 07-19 21:15
PROVIDERS: ADMIT Internal Medicine Geriatric Medicine; ATTEND Internal Medicine Geriatric Medicine
PROC: 5A09357 Assistance with Respiratory Ventilation, Less than 24 Consecutive Hours, Continuous Positive Airway Pressure (ICD-10-PCS; principal; 2024-07-19)
PROC: 5A09357 Assistance with Respiratory Ventilation, Less than 24 Consecutive Hours, Continuous Positive Airway Pressure (ICD-10-PCS; 2024-07-21)
DX: A41.50 Gram-negative sepsis, unspecified (principal); N17.0 Acute kidney failure with tubular necrosis; J96.01 Acute respiratory failure with hypoxia; J15.69 Pneumonia due to other Gram-negative bacteria; I50.43 Acute on chronic combined systolic (congestive) and diastolic (congestive) heart failure; E87.1 Hypo-osmolality and hyponatremia; J15.9 Unspecified bacterial pneumonia; E87.3 Alkalosis; I21.A1 Myocardial infarction type 2; E87.20 Acidosis, unspecified; I42.7 Cardiomyopathy due to drug and external agent; Z53.29 Procedure and treatment not carried out because of patient's decision for other reasons; F17.210 Nicotine dependence, cigarettes, uncomplicated; E87.6 Hypokalemia; T50.2X5A Adverse effect of carbonic-anhydrase inhibitors, benzothiadiazides and other diuretics, initial encounter; I27.20 Pulmonary hypertension, unspecified; T50.995A Adverse effect of other drugs, medicaments and biological substances, initial encounter; N18.9 Chronic kidney disease, unspecified; Z79.899 Other long term (current) drug therapy; Z59.00 Homelessness unspecified; Y92.89 Other specified places as the place of occurrence of the external cause
CPT/HCPCS: 36415; 36600; 70450; 71045; 80048; 80053; 80307; 80320; 81001; 82306; 82570; 82607; 82805; 82962; 83605; 83735; 83880; 84132; 84156; 84300; 84484; 85025; 85610; 85730; 87426; 87804; 93306; 94640; 94660; 97110; 97116; 97162; 99291; G0378; J0330; J3480